=== PATIENT | female | born 1980 | race African-American/Black ===

== ENCOUNTER 2017-02-12 20:28 | Emergency (ER) | payer MEDICAID ==
[~2017-02-12] VITALS: Ht 167.6 cm; Wt 63.0 kg
[~2017-02-12 20:28] MED LIST: BACT800T5 PO; MOTR200T4 PO; TRAM50TA PO; VENTAER INH; ZOFR4TAB PO; ZOFR4TAB3 SL
[2017-02-12 20:31] VITALS: BP 133/89; PULSE 93; RESP 14; TEMP 98; O2SAT 98
--- NOTE | 2017-02-12 21:05 | PD ---
HPI Chief Complaint: [employer] Problem/Complaint Time Seen by Provider: 21:00 Travel History International Travel<30 days: No Contact w/Intl Traveler<30days: No Traveled to known affect area: No History of Present Illness HPI 37-year-old female came to the emergency room with history of lower abdominal/ suprapubic pain for past 2 days. Patient says that the pain is progressively worsening. She has had her hysterectomy due to severe endometriosis in the past. No history of vaginal bleeding or discharge. She had her left ovary taken out as well. She does have some chills she says but patient was afebrile in triage. Vital signs were otherwise stable. She does not describe any dysuria or hematuria. Patient says she has not had this kind of pain in the past. No aggravating or relieving factors. No history of nausea vomiting. She seems uncomfortable. PFSH Past Medical History Narrative Medical List of her past medical, surgical, social and family history was reviewed from the nursing note. Hx Anticoagulant Therapy: Yes (hx blood clot in leg does not currently take meds.. can't afford) Blood Disorders: Yes (LLE DVT DX 01/2010) Cardiovascular Problems: No Diminished Hearing: No Deep Vein Thrombosis: Yes Gastrointestinal Disorders: No Genitourinary: Yes (Endometriosis Mass found on bladder 03/17/16) Musculoskeletal: No Neurologic: No Reproductive: Yes (Mass found on left ovary 03/17/16) Respiratory: No Immunizations Current: Yes ?: Not Menopausal: Yes : 4 Para: 4 Tubal Ligation: Yes Past Surgical History Section: Yes (X 4) Gynecologic Surgery: Yes (left ovary removed) Hysterectomy: Yes (2012) Other Surgery: Yes (IVC filter placement and DVT removal-LEFT LEG) Family History Family Hypercholesterolemia: Yes Social History Alcohol Use: No Tobacco Use: Yes (1/2 PD) Substance Use: Yes (MARIJUANA) Allergies-Medications (Allergen,Severity, Reaction): Coded Allergies: Percocet (Verified Allergy, Severe, Rash, 02/12/17) *MDRO Multi-Drug Resistant Organism (Verified Allergy, Unknown, 02/12/17) MRSA Comments List of her allergies reviewed from the nursing note. Reported Meds & Prescriptions Reported Meds & Active Scripts Active Hydrocodone-Acetaminophen 5-325 mg Tab 1 Tab PO Q6H PRN Macrobid (Nitrofurantoin Monoh/Nitrofur Macro) 100 Mg Cap 100 Mg PO BID 7 Days Reported Motrin Ib (Ibuprofen) 200 Mg Tab 400 Mg PO Q4H PRN Narrative Medication List of her home medications reviewed from the nursing note. Review of Systems Except as stated in HPI: all other systems reviewed are Neg Physical Exam Narrative GENERAL: Awake, alert, moderate to significant distress SKIN: Warm and dry. HEAD: Atraumatic. Normocephalic. EYES: Pupils equal and round. No scleral icterus. No injection or drainage. ENT: No nasal bleeding or discharge. Mucous membranes pink and moist. NECK: Trachea midline. No JVD. CARDIOVASCULAR: Regular rate and rhythm. No murmur appreciated. RESPIRATORY: No accessory muscle use. Clear to auscultation. Breath sounds equal bilaterally. GASTROINTESTINAL: Suprapubic mass that is tender on palpation. Given the tenderness it was difficult to assess the mass boundaries with certainty. Hepatic and splenic margins not palpable. MUSCULOSKELETAL: No obvious deformities. No clubbing. No cyanosis. No edema. NEUROLOGICAL: Awake and alert. No obvious cranial nerve deficits. Motor grossly within normal limits. Normal speech. PSYCHIATRIC: Appropriate mood and affect; insight and judgment normal. Data Data Last Documented VS Orders Complete Blood Count With Diff (02/12/17 21:14) Comprehensive Metabolic Panel (02/12/17 21:14) Lipase (02/12/17 21:14) Urinalysis - C+S If Indicated (02/12/17 21:14) Iv Access Insert/Monitor (02/12/17 21:14) Ecg Monitoring (02/12/17 21:14) Oximetry (02/12/17 21:14) Sodium Chlor 0.9% 1000 Ml Inj (Ns 1000 M (02/12/17 21:14) Sodium Chloride 0.9% Flush (Ns Flush) (02/12/17 21:15) Ketorolac Inj (Toradol Inj) (02/12/17 21:15) C-Reactive Protein (Crp) (02/12/17 21:14) Ct Abd/Pel W Iv Contrast(Rout) (02/12/17 ) Oral Contrast - Adult (02/12/17 21:22) Diatrizoate Liq ( [place] Liq) (02/12/17 21:38) Urine Culture (02/12/17 21:30) Morphine Inj (Morphine Inj) (02/12/17 22:30) Ondansetron Inj (Zofran Inj) (02/12/17 22:30) Sodium Chlor 0.9% 1000 Ml Inj (Ns 1000 M (02/12/17 22:30) Ceftriaxone Inj (Rocephin Inj) (02/12/17 22:30) Iohexol 350 Inj (Omnipaque 350 Inj) (02/12/17 23:04) Labs MDM Medical Decision Making Medical Screen Exam Complete: Yes Emergency Medical Condition: Yes Medical Record Reviewed: Yes Differential Diagnosis Cystitis, acute appendicitis, pelvic tumor Narrative Course 9:19 PM patient is medicated with Toradol for pain and IV fluid given. Ordered blood test and CT scan. Awaiting for the test results to be done and reported. I will reassess her in a bit. 11:40 PM patient earlier was vomiting and continued to have pain in spite of the Toradol. She was given morphine. Currently she seems to be pain free. CT scan report was back. It shows a pelvic mass that apparently was present in the earlier CT as well. The radiologist has mentioned this mass to be possibly infiltrative from endometriosis. Slightly bigger in size and engulfing the intestine but no obvious obstruction. I put a call out for the [employer] on-call and I will discuss the case with him. 11:45 PM I spoke with Dr. Rogers who was the OB change control specialist. After reading to him the report of the CAT scan he thought patient was a good candidate to be followed up as an outpatient with her [employer] or [employer] who is change control specialist. I will discharge her home with a prescription for antibiotic and few pills of hydrocodone. Procedures EKG Prior to Arrival: No Physician Communication Physician Communication Dr. Rogers Diagnosis Primary Impression: Pelvic pain Additional Impressions: Pelvic mass UTI (urinary tract infection) Qualified Code: N39.0 - Urinary tract infection without hematuria, site unspecified Vomiting Qualified Code: R11.2 - Non-intractable vomiting with nausea, unspecified vomiting type Endometriosis Referrals: Cheryl Irvin MD 3 days Departure Forms: Tests/Procedures, Work Release Enter return to work date: Feb 14, 2017 Additional Instructions: Please follow-up with your [employer] on Wednesday regarding the endometriosis mass. Take the pain medication only if the pain gets out of control. Take ibuprofen or Motrin for control the pain. Do not drive or operate heavy machinery while on the pain medication since it will make you groggy. Take the antibiotic as per the prescription direction. Return to the ER if the condition worsens or any other new concerns. Med/Other Pt SpecificInfo: Prescription(s) given Scripts Hydrocodone-Acetaminophen 5-325 mg Tab1 Tab PO Q6H PRN (PAIN) #15 TAB Ref 0 Prov:Walter Chang MD 02/12/17 Nitrofurantoin Monohydrate Macrocrystals (Macrobid)100 Mg [id number] Mg PO BID 7 Days Ref 0 Prov:Walter Chang MD 02/12/17 Disposition: 01 DISCHARGE HOME Condition: Stable Walter Chang MD Feb 12, 2017 21:05 Creatinine 0.59 MG/DL Estimat Glomerular Filtration 139 ML/MIN Rate Random Glucose 84 MG/DL Calcium Level 8.4 MG/DL Total Bilirubin 1.0 MG/DL Aspartate Amino Transf 12 U/L (AST/SGOT) Alanine Aminotransferase 16 U/L (ALT/SGPT) Alkaline Phosphatase 62 U/L C-Reactive Protein LESS THAN 0.29 MG/DL Total Protein 7.0 GM/DL Albumin 3.8 GM/DL Lipase 130 U/L Urine Color YELLOW Urine Turbidity HAZY Urine pH 6.0 Urine Specific [place] 1.020 Urine Protein TRACE mg/dL Urine Glucose (UA) NEG mg/dL Urine Ketones NEG mg/dL Urine Occult Blood LARGE Urine Nitrite NEG Urine Bilirubin NEG Urine Urobilinogen 2.0 MG/DL Urine Leukocyte Esterase SMALL Urine RBC /hpf Urine WBC 8 /hpf Urine Squamous Epithelial 3 /hpf Cells Urine Mucus FEW /lpf Microscopic Urinalysis Comment CULTURE INDICATED MDM Medical Decision Making Medical Screen Exam Complete: Yes Emergency Medical Condition: Yes Medical Record Reviewed: Yes Differential Diagnosis Cystitis, acute appendicitis, pelvic tumor Narrative Course 9:19 PM patient is medicated with Toradol for pain and IV fluid given. Ordered blood test and CT scan. Awaiting for the test results to be done and reported. I will reassess her in a bit. 11:40 PM patient earlier was vomiting and continued to have pain in spite of the Toradol. She was given morphine. Currently she seems to be pain free. CT scan report was back. It shows a pelvic mass that apparently was present in the earlier CT as well. The radiologist has mentioned this mass to be possibly infiltrative from endometriosis. Slightly bigger in size and engulfing the intestine but no obvious obstruction. I put a call out for the [employer] on-call and I will discuss the case with him. 11:45 PM I spoke with Dr. Rogers who was the OB change control specialist. After reading to him the report of the CAT scan he thought patient was a good candidate to be followed up as an outpatient with her [employer] or [employer] who is change control specialist. I will discharge her home with a prescription for antibiotic and few pills of hydrocodone. Procedures EKG Prior to Arrival: No Physician Communication Physician Communication Dr. Rogers Diagnosis Primary Impression: Pelvic pain Additional Impressions: Pelvic mass UTI (urinary tract infection) Qualified Code: N39.0 - Urinary tract infection without hematuria, site unspecified Vomiting Qualified Code: R11.2 - Non-intractable vomiting with nausea, unspecified vomiting type Endometriosis Referrals: Cheryl Irvin MD 3 days Departure Forms: Tests/Procedures, Work Release Enter return to work date: Feb 14, 2017 Additional Instructions: Please follow-up with your [employer] on Wednesday regarding the endometriosis mass. Take the pain medication only if the pain gets out of control. Take ibuprofen or Motrin for control the pain. Do not drive or operate heavy machinery while on the pain medication since it will make you groggy. Take the antibiotic as per the prescription direction. Return to the ER if the condition worsens or any other new concerns. Med/Other Pt SpecificInfo: Prescription(s) given Scripts Hydrocodone-Acetaminophen 5-325 mg Tab1 Tab PO Q6H PRN (PAIN) #15 TAB Ref 0 Prov:Walter Chang MD 02/12/17 Nitrofurantoin Monohydrate Macrocrystals (Macrobid)100 Mg [id number] Mg PO BID 7 Days Ref 0 Prov:Walter Chang MD 02/12/17 Disposition: 01 DISCHARGE HOME Condition: Stable Walter Chang MD Feb 12, 2017 21:05
[2017-02-12] MEDS ORDERED: SODIUM CHLOR 0.9% 1000 ML INJ 1,000 ML IV SCH (21:14)
[2017-02-12] MEDS ORDERED: SODIUM CHLORIDE 0.9% FLUSH 5 ML FLUSH IVF PRN (21:15)
[2017-02-12] MEDS ORDERED: KETOROLAC TROMETHAMINE 30 MG/ML (IVP) VIAL IVP ONE (21:15)
[2017-02-12] MEDS ORDERED: MOTR200T4 PO (21:17)
[2017-02-12] MEDS ORDERED: DIATRIZOATE MEGLUM/DIATRIZOATE SOD 9 ML CUP ONE (21:38)
[2017-02-12 21:55] LABS: AUTOMATED NEUTROPHIL # 6.1 TH/MM3 (1.8-7.7); BASOPHIL # 0.1 TH/MM3 (0-0.2); BASOPHIL % 1.3 % (0.0-2.0); EOSINOPHIL # 0.3 TH/MM3 (0-0.4); EOSINOPHIL % 2.4 % (0.0-4.0); HEMATOCRIT 37.5 % (35.0-46.0); HEMO FLAGS DIFF FINAL; LYMPHOCYTE # 3.5 TH/MM3 (1.0-4.8); MEAN CELL VOLUME 89.4 FL (80.0-100.0); MEAN CORPUSCULAR HEMOGLOBIN 31.9 PG (27.0-34.0); MEAN CORPUSCULAR HGB CONC 35.7 % (32.0-36.0); MONO % 6.3 % (0.0-8.0); PLATELET COUNT 227 TH/MM3 (150-450); RED BLOOD COUNT 4.19 MIL/MM3 (4.00-5.30); RED CELL DISTRIBUTION WIDTH 14.1 % (11.6-17.2); WHITE BLOOD COUNT 10.7 TH/MM3 (4.0-11.0)
[2017-02-12 21:58] LABS: BLOOD, URINE LARGE (NEG); COMMENT (UR) CULTURE INDICATED; CULTURE IF INDICATED CULTURE INDICATED; GLUCOSE,URINE NEG (NEG); KETONE, URINE NEG (NEG); MUCUS URINE FEW /lpf (OCC); NITRITE,URINE NEG (NEG); SQUAMOUS EPITHELIAL CELL URINE 3 /hpf (0-5); URINE COLOR YELLOW (YELLW/STRAW)
[2017-02-12 22:22] LABS: ALT (GPT) 16 U/L (10-53); ANION GAP 7 MEQ/L (5-15); AST (GOT) 12 U/L (15-37); BICARBONATE 23.2 MEQ/L (21.0-32.0); BLOOD UREA NITROGEN 15 MG/DL (7-18); CHLORIDE 110 MEQ/L (98-107); GLOMERULAR FILTRATION RATE 139 ML/MIN (>89); POTASSIUM 3.4 MEQ/L (3.5-5.1); SODIUM (NA) 140 MEQ/L (136-145)
[2017-02-12 22:24] LABS: ALKALINE PHOSPHATASE 62 U/L (45-117)
[2017-02-12] MEDS ORDERED: SODIUM CHLOR 0.9% 1000 ML INJ 1,000 ML IV ONE (22:30)
[2017-02-12] MEDS ORDERED: MORPHINE SULFATE 4 MG/ML INJ IV PUSH ONE (22:30)
[2017-02-12] MEDS ORDERED: ONDANSETRON HCL 4 MG/2 ML VIAL IV PUSH ONE (22:30)
[2017-02-12] MEDS ORDERED: cefTRIAXone INJ 1,000 MG in SODIUM CHLORIDE 0.9% INJ 100 ML IV ONE (22:30)
[2017-02-12] MEDS ORDERED: IOHEXOL 350 MG/ML 10 ML VIAL (for RAD DIAG) IV ONE (23:04)
--- NOTE | 2017-02-12 23:25 | RADRPT ---
EXAM DATE/TIME: 02/12/2017 22:51 [facility] COMPARISON: CT ABDOMEN & PELVIS W CONTRAST, November 03, 2016, 20:30. INDICATIONS : Abdominal pain. IV CONTRAST: 97 cc Omnipaque 350 (iohexol) IV ORAL CONTRAST: Partial prescribed oral contrast ingested. RADIATION DOSE: 9.96 CTDIvol (mGy) MEDICAL HISTORY : Cardiovascular disease. SURGICAL HISTORY : section. Tubal ligation.Left oopherectomy, IVC filter ENCOUNTER: Initial ACUITY: 1 day PAIN SCALE: 7/10 LOCATION: abdomen TECHNIQUE: Volumetric scanning of the abdomen and pelvis was performed. Using automated exposure control and ad justment of the mA and/or kV according to patient size, radiation dose was kept as low as reasonably achievable to obtain optimal diagnostic quality images. FINDINGS: Comparison is October 2016. Lung bases are clear. No acute findings in the liver, spleen, adrenals, kidneys or pancreas. Tiny nonobstructing calculus m id pole left kidney is stable. Again seen are postop changes of prior distal small bowel surgery with staple line visualized. Inferi or vena cava filter is present. Again seen is abnormal soft tissue thickening of the inferior anterior abdominal wall involving rectu s abdominus. There is an abnormal enhancing infiltrating mass in the anterior and superior wall of th e bladder. This measures approximately 4.5 x 2.6 x 3.4 cm. Mass is stable to slightly enlarged compar ed with October 2016. Reportedly there is a previous diagnosis of endometriosis. CONCLUSION: 1. Persistent abnormal masslike thickening of the rectus abdominus muscle inferiorly adjacent to the biopsy-proven site of endometriosis. Abnormal soft tissue extends into the pelvis where there is an e nhancing infiltrative mass along the anterosuperior wall of the bladder. Mass is stable to slightly i ncreased in size since October 2016 with measurements given above. Mass likely represents deep infil trative endometriosis given the clinical history. 2. There is some angulation and tethering of small bowel loops in the pelvis without obstruction. Valente Martinez MD on February 12, 2017 at 23:14 Board Certified Radiologist. This report was verified electronically.
[2017-02-12] MEDS ORDERED: MACR100C2 PO (23:53)
[2017-02-12] MEDS ORDERED: HYDR-3516 PO (23:53)
== END 2017-02-13 00:26 | disposition home or self-care (01) ==
LOC: NEPE 20:28
DX: N39.0 Urinary tract infection, site not specified (principal); N80.9 Endometriosis, unspecified; B96.29 Other Escherichia coli [E. coli] as the cause of diseases classified elsewhere; F17.210 Nicotine dependence, cigarettes, uncomplicated; F12.10 Cannabis abuse, uncomplicated; Z79.01 Long term (current) use of anticoagulants; Z86.718 Personal history of other venous thrombosis and embolism; Z90.710 Acquired absence of both cervix and uterus
CPT/HCPCS: 74177; 80053; 81001; 83690; 85025; 86140; 87086; 96374; 96375; 99284; J0696; J1885; J2270; J2405; J7030; Q9963; Q9967

== ENCOUNTER 2017-04-05 18:49 | Emergency (ER) | payer MEDICAID ==
[~2017-04-05] VITALS: Ht 170.2 cm; Wt 65.0 kg
[~2017-04-05 18:49] MED LIST changes: -BACT800T5 PO; +HYDR-3516 PO; +MACR100C2 PO; -TRAM50TA PO; -VENTAER INH; -ZOFR4TAB PO; -ZOFR4TAB3 SL
[2017-04-05 18:50] VITALS: BP 142/86; PULSE 87; RESP 16; TEMP 98.7; O2SAT 99
--- NOTE | 2017-04-05 19:07 | PD ---
Physical Exam Time Seen by Provider: 19:03 Narrative 37yo F w/ c/o LLQ abd pain since yesterday and hematuria today. Denies change in stool or blood in stool. Reports nausea w/o vomiting. Denies fever. Says she also feels a flutter in heart occasionally and it hurts to breath. Hx of hysterectomy. Hx of DVT and has filter in heart and lungs. Yossi hx PE. Denies anticoagulants. VS reviewed. Patient seen in triage. Awaiting bed placement. Data Data Last Documented VS Vital Signs Date Time Temp Pulse Resp B/P Pulse Ox O2 Delivery O2 Flow Rate FiO2 04/05/17 18:50 98.7 87 16 142/86 99 MDM Supervised Visit with DANY: Vianey Bashir April 05, 2017 19:07
--- NOTE | 2017-04-05 19:31 | PD ---
HPI Chief Complaint: Abdominal Pain Time Seen by Provider: 19:14 Travel History International Travel<30 days: No Contact w/Intl Traveler<30days: No Traveled to known affect area: No History of Present Illness HPI The patient is a 37 year old female who presents to the [facility] emergency department with a history of worsening abdominal pain in the suprapubic area and left lower quadrant of the abdomen began over the last 2 days. This morning she reports that she also began to have hematuria once in the morning and once this evening. She reports that she has chronic urinary frequency and urgency over the last 2 years. She reports that she also has been diagnosed with severe endometriosis and was referred by her primary care doctor, Dr. Rodríguez braid pattern setter in [place], however her endometriosis was so extensive that the CONTENT DESIGNER recommended as his surgeon for treatment. The patient reports that she has undergone a hysterectomy and a left oophorectomy related to the endometriosis previously. The patient's other symptoms include for the last 2 weeks left leg swelling and intermittent cramping of the calf. The patient reports that she has a history of left lower extremity DVT in 2009. She reports that it was extensive and was resistant to thrombolysis/ thrombectomy. The patient reports that she was on blood thinners for 3 years, however she also had an inferior vena cava filter placement. The patient confirms over the last 2 days that she's had pain that feels like a spasm/ cramping sensation in her lower abdomen after she urinates. The patient denies any recent fevers, cough, congestion, neck pain, chest pain, shortness of breath , vomiting, diarrhea, or neurologic symptoms. [facility] Past Medical History Narrative Medical The patient's past medical history is significant for left lower farias a DVT, history of inferior vena caval filter placement, history of endometriosis, with last evaluation by CT on February 12, 2017 revealed a masslike thickening of the rectus abdominis muscle inferiorly adjacent to biopsy proven site of endometriosis, infiltrative mass along the anterior superior wall of the bladder that it increased in size since October 2016 thought to be an infiltrative endometriosis. The patient has a history of tobacco use. Hx Anticoagulant Therapy: Yes (hx blood clot in leg does not currently take meds.. can't afford) Blood Disorders: Yes (LLE DVT DX 01/2010) Cardiovascular Problems: No Diminished Hearing: No Deep Vein Thrombosis: Yes Gastrointestinal Disorders: No Genitourinary: Yes (Endometriosis Mass found on bladder 03/17/16) Musculoskeletal: No Neurologic: No Reproductive: Yes (Mass found on left ovary 03/17/16) Respiratory: No Immunizations Current: Yes Tetanus Vaccination: Unknown Influenza Vaccination: Yes ?: Not Menopausal: Yes : 4 Para: 4 Tubal Ligation: Yes Past Surgical History Narrative Surgical The patient's past surgical history is significant for an inferior vena cava filter placement, 4 prior C-sections, attempted thrombectomy of the left lower extremity DVT, left oophorectomy. Section: Yes (X 4) Gynecologic Surgery: Yes (left ovary removed) Hysterectomy: Yes Other Surgery: Yes (IVC filter placement and DVT removal-LEFT LEG) Family History Family Hypercholesterolemia: Yes Social History Alcohol Use: No Tobacco Use: Yes (1/2 PD) Substance Use: Yes (MARIJUANA) Allergies-Medications (Allergen,Severity, Reaction): Coded Allergies: Percocet (Verified Allergy, Severe, Rash, 04/05/17) *MDRO Multi-Drug Resistant Organism (Verified Allergy, Unknown, 04/05/17) MRSA Reported Meds & Prescriptions Reported Meds & Active Scripts Active No Active Prescriptions or Reported Medications Review of Systems Except as stated in HPI: all other systems reviewed are Neg General / Constitutional: No: Fever Eyes: No: Visual changes HENT: No: Headaches Cardiovascular: No: Chest Pain or Discomfort Respiratory: No: Shortness of Breath Gastrointestinal: Positive: Abdominal Pain, No: Nausea, Vomiting, Diarrhea, Hematemesis, Hematochezia, Changes in Bowel Habits, Indigestion, Loss of Appetite Genitourinary: Positive: Urgency, Frequency, Dysuria, Hematuria Musculoskeletal: No: Pain Skin: No Rash Neurologic: No: Weakness, Focal Abnormalities, Slurred Speech, Sensory Disturbance Psychiatric: No: Depression Endocrine: No: Polydipsia Hematologic/Lymphatic: No: Easy Bruising Physical Exam Narrative General: The patient is a well-developed well-nourished female in no acute distress. Head and Neck exam: Head is normocephalic atraumatic. Eyes: EOMI, pupils are equal round and reactive to light. Nose: Midline septum with pink mucous membranes Mouth: Dentition unremarkable. Moist mucus membranes. Posterior oropharynx is not erythematous. No tonsillar hypertrophy. Uvula midline. Airway patent. Neck: No palpable lymphadenopathy. No nuchal rigidity. No thyromegaly. Cardiovascular: Regular rate and rhythm without murmurs, gallops, or rubs. Lungs: Clear to auscultation bilaterally. No wheezes, rhonchi, or rales. Abdomen: Soft, with tenderness on palpation over the suprapubic and left lower quadrant of abdomen. No guarding, rebound, or rigidity. No tenderness on palpation of McBurney's point. Negative Whalen sign. Normal bowel sounds are audible. Extremities: No clubbing or cyanosis. The patient has left lower extremity trace pedal edema. 2+ pulses in all 4 extremities. The patient has left-sided calf tenderness on palpation with a positive Homans sign. No palpable cords. Back: No spinous process tenderness to palpation. No costovertebral angle tenderness to palpation. Neurologic Exam: Grossly nonfocal. Skin Exam: No rash noted. Intact skin that is warm and dry. Data Data Last Documented VS Vital Signs Date Time Temp Pulse Resp B/P Pulse Ox O2 Delivery O2 Flow Rate FiO2 04/05/17 20:01 99 Room Air 04/05/17 18:50 98.7 87 16 142/86 Orders Electrocardiogram (04/05/17 19:33) Complete Blood Count With Diff (04/05/17 19:33) Comprehensive Metabolic Panel (04/05/17 19:33) Prothrombin Time / Inr (Pt) (04/05/17 19:33) Act Partial Throm Time (Ptt) (04/05/17 19:33) Lipase (04/05/17 19:33) Urinalysis - C+S If Indicated (04/05/17 19:33) Magnesium (Mg) (04/05/17 19:33) Thyroid Stimulating Hormone (04/05/17 19:33) Chest, Single Ap (04/05/17 19:33) Iv Access Insert/Monitor (04/05/17 19:33) Ecg Monitoring (04/05/17 19:33) Oximetry (04/05/17 19:33) Ed Urine Pregnancytest Poc (04/05/17 19:33) Us Leg Venous Doppler (04/05/17 19:33) Ct Abd/Pel W Iv Contrast(Rout) (04/05/17 19:36) Sodium Chlor 0.9% 1000 Ml Inj (Ns 1000 M (04/05/17 19:45) Urine Culture (04/05/17 19:53) Sodium Chlor 0.9% 1000 Ml Inj (Ns 1000 M (04/05/17 21:15) Ceftriaxone Inj (Rocephin Inj) (04/05/17 21:15) Iohexol 350 Inj (Omnipaque 350 Inj) (04/05/17 21:24) Labs Laboratory Tests Test 04/05/17 19:53 White Blood Count 10.4 TH/MM3 Red Blood Count 4.26 MIL/MM3 Hemoglobin 13.0 GM/DL Hematocrit 38.3 % Mean Corpuscular Volume 89.9 FL Mean Corpuscular Hemoglobin 30.5 PG Mean Corpuscular Hemoglobin 33.9 % Concent Red Cell Distribution Width 13.3 % Platelet Count 224 TH/MM3 Mean Platelet Volume 8.1 FL Neutrophils (%) (Auto) 59.6 % Lymphocytes (%) (Auto) 31.7 % Monocytes (%) (Auto) 6.5 % Eosinophils (%) (Auto) 1.8 % Basophils (%) (Auto) 0.4 % Neutrophils # (Auto) 6.2 TH/MM3 Lymphocytes # (Auto) 3.3 TH/MM3 Monocytes # (Auto) 0.7 TH/MM3 Eosinophils # (Auto) 0.2 TH/MM3 Basophils # (Auto) 0.0 TH/MM3 CBC Comment DIFF FINAL Differential Comment Prothrombin Time 11.7 SEC Prothromb Time International 1.1 RATIO Ratio Activated Partial 27.3 SEC Thromboplast Time Urine Color YELLOW Urine Turbidity HAZY Urine pH 6.5 Urine Specific [place] 1.040 Urine Protein 30 mg/dL Urine Glucose (UA) NEG mg/dL Urine Ketones TRACE mg/dL Urine Occult Blood LARGE Urine Nitrite NEG Urine Bilirubin NEG Urine Urobilinogen 2.0 MG/DL Urine Leukocyte Esterase MOD Urine RBC /hpf Urine WBC 11 /hpf Urine Squamous Epithelial 1 /hpf Cells Urine Bacteria RARE /hpf Urine Mucus FEW /lpf Microscopic Urinalysis Comment CULTURE INDICATED Sodium Level 140 MEQ/L Potassium Level 3.6 MEQ/L Chloride Level 109 MEQ/L Carbon Dioxide Level 23.3 MEQ/L Anion Gap 8 MEQ/L Blood Urea Nitrogen 18 MG/DL Creatinine 0.62 MG/DL Estimat Glomerular Filtration 131 ML/MIN Rate Random Glucose 91 MG/DL Calcium Level 8.7 MG/DL Magnesium Level 1.7 MG/DL Total Bilirubin 0.8 MG/DL Aspartate Amino Transf 12 U/L (AST/SGOT) Alanine Aminotransferase 15 U/L (ALT/SGPT) Alkaline Phosphatase 67 U/L Total Protein 6.8 GM/DL Albumin 3.6 GM/DL Lipase 128 U/L Thyroid Stimulating Hormone 2.350 uIU/ML 3rd Gen [facility] Medical Decision Making Medical Screen Exam Complete: Yes Emergency Medical Condition: Yes Medical Record Reviewed: Yes Interpretation(s) Last Impressions Abdomen/Pelvis CT 04/05/171935 Signed Impressions: Service Date/Time: Wednesday, April 05, 2017 21:15 - CONCLUSION: Stable CT appearance of the abdomen and pelvis Lamberto Byers MD Lower Extremity Ultrasound 04/05/171932 Signed Impressions: Service Date/Time: Wednesday, April 05, 2017 20:30 - CONCLUSION: Normal examination. Lamberto Byers MD Chest X-Ray 04/05/171932 Signed Impressions: Service Date/Time: Wednesday, April 05, 2017 19:47 - CONCLUSION: No acute disease. Lamberto Byers MD Differential Diagnosis Endometrial Mass infiltration through the bladder, versus urinary tract infection/hemorrhagic cystitis, versus kidney stone, versus pyelonephritis. Narrative Course During the course of the patients emergency department visit, the patients history, examination, and differential diagnosis were reviewed with the patient. The patient had IV access obtained and blood work sent for analysis. The patient will have a CT scan of the abdomen and pelvis, ultrasound of left lower extremity to evaluate for possible recurrent DVT. The patient was initially provided normal saline 1 L IV fluid bolus. The patients laboratory studies were reviewed and remarkable for a white count of 10.4, hemoglobin 13, platelets 224 with a normal differential, CMP is remarkable for chloride of 109, AST 12, TSH 2.35, lipase 128, PT 11.7, PTT 27.3 , urinalysis shows specific gravity 1.040, therefore a second liter of normal saline IV fluids was administered, 30 protein, trace ketones, large occult blood , moderate leukocyte esterase with innumerable rbc's, 11 the PVCs, rare bacteria , culture indicated. Radiology studies were reviewed and remarkable for a chest x-ray that shows no acute abnormality. An ultrasound of the left lower extremity that shows no evidence of DVT, normal exam. CT scan of the abdomen and pelvis is stable compared to previously according to the reading radiologist. The patient will be discharged home with a prescription for pain medication and antibiotic. The patient is instructed regarding the importance of following up with a general surgeon as previously recommended by the braid pattern setter she saw in consultation. The patient is resting comfortably and feels better, is alert and in no distress. The patients results and examination findings were discussed with the patient. The repeat examination is unremarkable and benign. The history, exam, diagnostic testing, and current condition do not suggest any significant pathology to warrant further testing, continued ED treatment, admission, or surgical evaluation at this point. The vital signs have been stable. The patient does not have uncontrollable pain, intractable vomiting, or other significant symptoms. The patient's condition is stable and appropriate for discharge. The patient will pursue further outpatient evaluation with a primary care physician or other designated or consulting physician as indicated in the discharge instructions. The patient expressed understanding and was agreeable with this plan. Diagnosis Primary Impression: Abdominal pain Qualified Code: R10.32 - Left lower quadrant pain Additional Impressions: Endometriosis Urinary tract infection Qualified Code: N30.01 - Acute cystitis with hematuria Referrals: General Surgeon 1 week Primary Care Physician 3 days Patient Instructions: Endometriosis (ED), General Instructions, Urinary Tract Infection in Women (ED) Med/Other Pt SpecificInfo: Prescription(s) given Scripts Sulfamethoxazole-Trimethoprim (Bactrim DS)800-160 Mg Tab1 Tab PO BID #14 TAB Ref 0 Prov:Emili Zuñiga MD 04/05/17 Hydrocodone-Acetaminophen 5-325 mg Tab1 Tab PO Q6H PRN (PAIN) #15 TAB Ref 0 Prov:Emili Zuñiga MD 04/05/17 Disposition: 01 DISCHARGE HOME Condition: Stable Emili Zuñiga MD April 05, 2017 19:31
[2017-04-05] MEDS ORDERED: SODIUM CHLOR 0.9% 1000 ML INJ 1,000 ML IV ONE ×2 (19:45→21:15)
--- NOTE | 2017-04-05 19:59 | RADRPT ---
EXAM DATE/TIME: 04/05/2017 19:47 [facility] COMPARISON: CHEST SINGLE AP, October 18, 2016, 18:47. INDICATIONS : Palpitations. Dyspnea. Chest and upper abdomen pain. MEDICAL HISTORY : Cardiovascular disease. Deep venous thrombosis. SURGICAL HISTORY : section. Tubal ligation. IVC filter. Oopherectomy, left. ENCOUNTER: Initial ACUITY: 2 days PAIN SCORE: 5/10 LOCATION: Bilateral upper quadrant abdomen and chest FINDINGS: A single view of the chest demonstrates the lungs to be symmetrically aerated without evidence of mas s, infiltrate or effusion. The cardiomediastinal contours are unremarkable. Osseous structures are intact. CONCLUSION: No acute disease. Lamberto Byers MD on April 05, 2017 at 19:57 Board Certified Radiologist. This report was verified electronically.
[2017-04-05 20:01] VITALS: O2SAT 99
[2017-04-05 20:26] LABS: AUTOMATED NEUTROPHIL # 6.2 TH/MM3 (1.8-7.7); BASOPHIL % 0.4 % (0.0-2.0); EOSINOPHIL # 0.2 TH/MM3 (0-0.4); EOSINOPHIL % 1.8 % (0.0-4.0); HEMATOCRIT 38.3 % (35.0-46.0); HEMO FLAGS DIFF FINAL; LYMPH % 31.7 % (9.0-44.0); LYMPHOCYTE # 3.3 TH/MM3 (1.0-4.8); MEAN CELL VOLUME 89.9 FL (80.0-100.0); MEAN CORPUSCULAR HEMOGLOBIN 30.5 PG (27.0-34.0); MEAN CORPUSCULAR HGB CONC 33.9 % (32.0-36.0); MONO % 6.5 % (0.0-8.0); NEUT % 59.6 % (16.0-70.0); PLATELET COUNT 224 TH/MM3 (150-450); RED BLOOD COUNT 4.26 MIL/MM3 (4.00-5.30); RED CELL DISTRIBUTION WIDTH 13.3 % (11.6-17.2); WHITE BLOOD COUNT 10.4 TH/MM3 (4.0-11.0)
[2017-04-05 20:29] LABS: BACTERIA, URINE RARE /hpf; BLOOD, URINE LARGE (NEG); GLUCOSE,URINE NEG (NEG); KETONE, URINE TRACE mg/dL (NEG); MUCUS URINE FEW /lpf (OCC); NITRITE,URINE NEG (NEG); PH, URINE 6.5 (5.0-8.5); SQUAMOUS EPITHELIAL CELL URINE 1 /hpf (0-5); URINE COLOR YELLOW (YELLW/STRAW)
[2017-04-05 20:30] LABS: COMMENT (UR) CULTURE INDICATED; CULTURE IF INDICATED CULTURE INDICATED
[2017-04-05 20:36] LABS: APTT (PATIENT) 27.3 SEC (24.3-30.1); INTERNATIONAL NORMALIZED RATIO 1.1 RATIO; PROTHROMBIN TIME - PATIENT 11.7 SEC (9.8-11.6)
[2017-04-05 20:43] LABS: ANION GAP 8 MEQ/L (5-15); AST (GOT) 12 U/L (15-37); BICARBONATE 23.3 MEQ/L (21.0-32.0); BLOOD UREA NITROGEN 18 MG/DL (7-18); CHLORIDE 109 MEQ/L (98-107); GLOMERULAR FILTRATION RATE 131 ML/MIN (>89); MAGNESIUM 1.7 MG/DL (1.5-2.5); POTASSIUM 3.6 MEQ/L (3.5-5.1); SODIUM (NA) 140 MEQ/L (136-145)
[2017-04-05 20:54] LABS: ALKALINE PHOSPHATASE 67 U/L (45-117); ALT (GPT) 15 U/L (10-53); TOTAL BILIRUBIN ADULT 0.8 MG/DL (0.2-1.0)
[2017-04-05] MEDS ORDERED: cefTRIAXone INJ 1,000 MG in SODIUM CHLORIDE 0.9% INJ 100 ML IV ONE (21:15)
[2017-04-05] MEDS ORDERED: IOHEXOL 350 MG/ML 10 ML VIAL (for RAD DIAG) IV ONE (21:24)
--- NOTE | 2017-04-05 21:24 | RADRPT ---
EXAM DATE/TIME: 04/05/2017 20:30 [facility] COMPARISON: No previous studies available for comparison. INDICATIONS : Left leg swelling. MEDICAL HISTORY : Deep venous thrombosis. Anticoagulant therapy. . Endometriosis. SURGICAL HISTORY : Tubal ligation. Hysterectomy. section. IVC filter. Thrombolysis/thrombectomy. ENCOUNTER: Subsequent ACUITY: 2 weeks PAIN SCORE: 1/10 LOCATION: Left leg. TECHNIQUE: Venous ultrasound of the leg was performed from the inguinal ligament to the proximal calf. Real-kervin e, color Doppler and spectral tracing, compression and augmentation techniques were used. FINDINGS: There is normal compressibility of the deep venous system from the inguinal region to the proximal ca lf. No echogenic clot is seen in the lumen of the common femoral, femoral, popliteal, and posterior tibial veins. There is a normal response of the venous system to proximal and distal augmentation an d respiration. CONCLUSION: Normal examination. Lamberto Byers MD on April 05, 2017 at 21:22 Board Certified Radiologist. This report was verified electronically.
--- NOTE | 2017-04-05 21:38 | RADRPT ---
EXAM DATE/TIME: 04/05/2017 21:15 [facility] COMPARISON: CT ABDOMEN & PELVIS W CONTRAST, February 12, 2017, 22:51. INDICATIONS : Left lower abdomen pain and hematuria today. IV CONTRAST: 96 cc Omnipaque 350 (iohexol) IV ORAL CONTRAST: No oral contrast ingested. RADIATION DOSE: 9.96 CTDIvol (mGy) MEDICAL HISTORY : deep vein thrombosis SURGICAL HISTORY : Hysterectomy. ENCOUNTER: Initial ACUITY: 1 day PAIN SCALE: 7/10 LOCATION: Left lower quadrant TECHNIQUE: Volumetric scanning of the abdomen and pelvis was performed. Using automated exposure control and ad justment of the mA and/or kV according to patient size, radiation dose was kept as low as reasonably achievable to obtain optimal diagnostic quality images. FINDINGS: LOWER LUNGS: The visualized lower lungs are clear. LIVER: Homogeneous density without lesion. There is no dilation of the biliary tree. No calcified gallston es. SPLEEN: Normal size without lesion. PANCREAS: Within normal limits. KIDNEYS: Normal in size and shape. There is no mass, stone or hydronephrosis. ADRENAL GLANDS: Within normal limits. VASCULAR: Aorta and branch vessels are intact and unremarkable. Inferior vena caval filter is again noted. BOWEL/MESENTERY: Anastomosis in the left lower quadrant. No evidence of bowel obstruction. No focal inflammatory vazquez es. ABDOMINAL WALL: Stable heterogeneous density in the low anterior pelvic wall, reportedly reflecting endometriosis pos t previous hysterectomy. Mass along the anterior left lateral dome of the bladder is also unchanged a nd presumably the same histology. RETROPERITONEUM: There is no lymphadenopathy. BLADDER: Mass as previously described, unchanged. REPRODUCTIVE: Mass as previously described, unchanged. INGUINAL: There is no lymphadenopathy or hernia. MUSCULOSKELETAL: Within normal limits for patient age. CONCLUSION: Stable CT appearance of the abdomen and pelvis Lamberto Byers MD on April 05, 2017 at 21:30 Board Certified Radiologist. This report was verified electronically.
[2017-04-05] MEDS ORDERED: HYDR-3516 PO (22:02)
[2017-04-05] MEDS ORDERED: BACT800T5 PO (22:02)
[2017-04-05] MEDS ORDERED: ACETAMINOPHEN/HYDROcodone 325 MG/5 MG TAB PO ONE (22:15)
--- NOTE | 2017-04-06 15:41 | EKG ---
Date Performed: 04/05/2017 Time Performed: 19:52:32 PTAGE: 37 years EKG: Sinus rhythm Compared to prior tracing no significant change NORMAL ECG PREVIOUS TRACING : 03/10/2010 17.47 DOCTOR: Hudson Ghosh Interpretating Date/Time 04/06/2017 15:37:26
== END 2017-04-05 23:35 | disposition home or self-care (01) ==
LOC: NEPC 18:49
DX: R10.32 Left lower quadrant pain (principal); N39.0 Urinary tract infection, site not specified; N80.9 Endometriosis, unspecified; R11.0 Nausea; R60.0 Localized edema; I49.8 Other specified cardiac arrhythmias; F17.210 Nicotine dependence, cigarettes, uncomplicated; Z86.718 Personal history of other venous thrombosis and embolism
CPT/HCPCS: 71010; 74177; 80053; 81001; 83690; 83735; 84443; 84703; 85025; 85610; 85730; 87086; 93005; 93971; J0696; J7030; Q9967; 96361; 96365

== ENCOUNTER 2017-05-17 05:05 | Emergency (ER) | payer MEDICAID ==
[~2017-05-17 05:05] MED LIST changes: +BACT800T5 PO; -MACR100C2 PO; -MOTR200T4 PO
[2017-05-17 05:09] VITALS: BP 112/77; PULSE 103; RESP 16; TEMP 98.3; O2SAT 98
[2017-05-17 06:10] VITALS: BP 118/80; PULSE 83; RESP 18; O2SAT 98
[2017-05-17] MEDS ORDERED: SODIUM CHLOR 0.9% 1000 ML INJ 1,000 ML IV SCH (06:49)
[2017-05-17 06:57] VITALS: RESP 18; O2SAT 99
[2017-05-17] MEDS ORDERED: ONDANSETRON HCL 4 MG/2 ML VIAL IVP ONE (07:00)
[2017-05-17] MEDS ORDERED: SODIUM CHLORIDE 0.9% FLUSH 10 ML FLUSH IV FLUSH PRN (07:00)
--- NOTE | 2017-05-17 07:03 | PD ---
HPI Chief Complaint: GI Complaint Time Seen by Provider: 06:41 Travel History International Travel<30 days: No Contact w/Intl Traveler<30days: No Traveled to known affect area: No History of Present Illness HPI The patient is a 37-year-old female that complains of bilateral lower quadrant pain, nausea and vomiting for 3 days. She denies any fever. She has a history of small bowel obstruction in 2009. She also has a history of DVT around the same time but is not on any anticoagulants. She has a hysterectomy. Her left ovary was removed. She states she still has her appendix and gallbladder. She denies any fever or diarrhea. PFSH Past Medical History Hx Anticoagulant Therapy: Yes (hx blood clot in leg does not currently take meds.. can't afford) Blood Disorders: Yes (LLE DVT DX 01/2010) Cardiovascular Problems: No Diminished Hearing: No Deep Vein Thrombosis: Yes Gastrointestinal Disorders: No Genitourinary: Yes (Endometriosis Mass found on bladder 03/17/16) Musculoskeletal: No Neurologic: No Reproductive: Yes (Mass found on left ovary 03/17/16) Respiratory: No Immunizations Current: Yes ?: Not Menopausal: Yes : 4 Para: 4 Tubal Ligation: Yes Past Surgical History Section: Yes (X 4) Gynecologic Surgery: Yes (left ovary removed) Hysterectomy: Yes Other Surgery: Yes (IVC filter placement and DVT removal-LEFT LEG) Family History Family Hypercholesterolemia: Yes Social History Alcohol Use: No Tobacco Use: Yes (/2 PD) Substance Use: Yes (MARIJUANA) Allergies-Medications (Allergen,Severity, Reaction): Coded Allergies: Percocet (Verified Allergy, Severe, Rash, 05/17/17) *MDRO Multi-Drug Resistant Organism (Verified Allergy, Unknown, 05/17/17) MRSA Reported Meds & Prescriptions Reported Meds & Active Scripts Active Hydrocodone-Acetaminophen 5-325 mg Tab 1 Tab PO Q6H PRN Review of Systems Except as stated in HPI: all other systems reviewed are Neg Physical Exam Narrative GENERAL: The patient is moderately dehydrated appearing. Her vital signs show heart rate of 103 but otherwise normal. SKIN: Focused skin assessment warm/dry. HEAD: Atraumatic. Normocephalic. EYES: Pupils equal and round. No scleral icterus. No injection or drainage. ENT: No nasal bleeding or discharge. Mucous membranes pink and moist. NECK: Trachea midline. No JVD. CARDIOVASCULAR: Regular rate and rhythm. No murmur appreciated. RESPIRATORY: No accessory muscle use. Clear to auscultation. Breath sounds equal bilaterally. GASTROINTESTINAL: Abdomen soft, with tenderness to direct palpation in both lower quadrants, nondistended. Hepatic and splenic margins not palpable. No guarding or rebound is present. MUSCULOSKELETAL: No obvious deformities. No clubbing. No cyanosis. No edema. NEUROLOGICAL: Awake and alert. No obvious cranial nerve deficits. Motor grossly within normal limits. Normal speech. PSYCHIATRIC: Appropriate mood and affect; insight and judgment normal. Data Data Last Documented VS Vital Signs Date Time Temp Pulse Resp B/P Pulse Ox O2 Delivery O2 Flow Rate FiO2 05/17/17 06:57 18 99 Room Air 05/17/17 06:10 83 118/80 05/17/17 05:09 98.3 Orders Complete Blood Count With Diff (05/17/17 06:49) Comprehensive Metabolic Panel (05/17/17 06:49) Lipase (05/17/17 06:49) Urinalysis - C+S If Indicated (05/17/17 06:49) Ct Abd/Pel W Iv Contrast(Rout) (05/17/17 06:49) Iv Access Insert/Monitor (05/17/17 06:49) Ecg Monitoring (05/17/17 06:49) Oximetry (05/17/17 06:49) Ondansetron Inj (Zofran Inj) (05/17/17 07:00) Sodium Chlor 0.9% 1000 Ml Inj (Ns 1000 M (05/17/17 06:49) Sodium Chloride 0.9% Flush (Ns Flush) (05/17/17 07:00) MDM Medical Decision Making Medical Screen Exam Complete: Yes Emergency Medical Condition: Yes Medical Record Reviewed: Yes Differential Diagnosis Acute appendicitis, small bowel obstruction, gastritis, dehydration, electrolyte disorder, renal insufficiency, anemia Narrative Course It is now 0700 and the patient is transferred to Jonn Banerjee MD May 17, 2017 07:03
[2017-05-17 07:20] LABS: ALKALINE PHOSPHATASE 67 U/L (45-117); TOTAL BILIRUBIN ADULT 0.7 MG/DL (0.2-1.0)
[2017-05-17 07:30] LABS: ALT (GPT) 19 U/L (10-53); ANION GAP 6 MEQ/L (5-15); AST (GOT) 32 U/L (15-37); BICARBONATE 27.1 MEQ/L (21.0-32.0); BLOOD UREA NITROGEN 17 MG/DL (7-18); CHLORIDE 106 MEQ/L (98-107); GLOMERULAR FILTRATION RATE 164 ML/MIN (>89); SODIUM (NA) 139 MEQ/L (136-145)
[2017-05-17 07:32] LABS: POTASSIUM 4.3 MEQ/L (3.5-5.1)
[2017-05-17 07:57] LABS: AUTOMATED NEUTROPHIL # 6.5 TH/MM3 (1.8-7.7); BASOPHIL # 0.1 TH/MM3 (0-0.2); BASOPHIL % 0.6 % (0.0-2.0); EOSINOPHIL # 0.3 TH/MM3 (0-0.4); EOSINOPHIL % 2.4 % (0.0-4.0); HEMATOCRIT 35.8 % (35.0-46.0); HEMO FLAGS DIFF FINAL; LYMPH % 28.8 % (9.0-44.0); MEAN CELL VOLUME 89.6 FL (80.0-100.0); MEAN CORPUSCULAR HEMOGLOBIN 31.4 PG (27.0-34.0); MONO % 5.8 % (0.0-8.0); NEUT % 62.4 % (16.0-70.0); PLATELET COUNT 221 TH/MM3 (150-450); RED CELL DISTRIBUTION WIDTH 13.7 % (11.6-17.2); WHITE BLOOD COUNT 10.5 TH/MM3 (4.0-11.0)
--- NOTE | 2017-05-17 08:12 | PD ---
Physical Exam Narrative Received sign out from previous team to follow up with CTa/p and reevaluate. 37yo F presents to the ED with c/o lower abdominal pain, NBNB vomiting. Denies any fever. Labs reviewed, no leukocytosis. Lipase wnl. CMP unremarkable. CTa /p showed cystic mass in left adnexa. Right ovary is surgically absent. Pt given morphine and zofran for pain. Pt reevaluated at bedside and pain has resolved. Abdomen soft, NT/ND. No rebound tenderness or guarding. Pt is well appearing. Tolerating PO. Data Data Last Documented VS Vital Signs Date Time Temp Pulse Resp B/P Pulse Ox O2 Delivery O2 Flow Rate FiO2 05/17/17 06:57 18 99 Room Air 05/17/17 06:10 83 118/80 05/17/17 05:09 98.3 Orders Complete Blood Count With Diff (05/17/17 06:49) Comprehensive Metabolic Panel (05/17/17 06:49) Lipase (05/17/17 06:49) Urinalysis - C+S If Indicated (05/17/17 06:49) Ct Abd/Pel W Iv Contrast(Rout) (05/17/17 06:49) Iv Access Insert/Monitor (05/17/17 06:49) Ecg Monitoring (05/17/17 06:49) Oximetry (05/17/17 06:49) Ondansetron Inj (Zofran Inj) (05/17/17 07:00) Sodium Chlor 0.9% 1000 Ml Inj (Ns 1000 M (05/17/17 06:49) Sodium Chloride 0.9% Flush (Ns Flush) (05/17/17 07:00) Ed Urine Pregnancytest Poc (05/17/17 07:56) Iohexol 350 Inj (Omnipaque 350 Inj) (05/17/17 08:20) Morphine Inj (Morphine Inj) (05/17/17 10:15) Ondansetron Inj (Zofran Inj) (05/17/17 10:45) Labs Laboratory Tests Test 05/17/17 05/17/17 05/17/17 06:50 07:37 08:20 Sodium Level 139 MEQ/L Potassium Level 4.3 MEQ/L Chloride Level 106 MEQ/L Carbon Dioxide Level 27.1 MEQ/L Anion Gap 6 MEQ/L Blood Urea Nitrogen 17 MG/DL Creatinine 0.51 MG/DL Estimat Glomerular Filtration 164 ML/MIN Rate Random Glucose 96 MG/DL Calcium Level 8.7 MG/DL Total Bilirubin 0.7 MG/DL Aspartate Amino Transf 32 U/L (AST/SGOT) Alanine Aminotransferase 19 U/L (ALT/SGPT) Alkaline Phosphatase 67 U/L Total Protein 7.0 GM/DL Albumin 3.7 GM/DL Lipase 95 U/L White Blood Count 10.5 TH/MM3 Red Blood Count 4.00 MIL/MM3 Hemoglobin 12.5 GM/DL Hematocrit 35.8 % Mean Corpuscular Volume 89.6 FL Mean Corpuscular Hemoglobin 31.4 PG Mean Corpuscular Hemoglobin 35.0 % Concent Red Cell Distribution Width 13.7 % Platelet Count 221 TH/MM3 Mean Platelet Volume 7.9 FL Neutrophils (%) (Auto) 62.4 % Lymphocytes (%) (Auto) 28.8 % Monocytes (%) (Auto) 5.8 % Eosinophils (%) (Auto) 2.4 % Basophils (%) (Auto) 0.6 % Neutrophils # (Auto) 6.5 TH/MM3 Lymphocytes # (Auto) 3.0 TH/MM3 Monocytes # (Auto) 0.6 TH/MM3 Eosinophils # (Auto) 0.3 TH/MM3 Basophils # (Auto) 0.1 TH/MM3 CBC Comment DIFF FINAL Differential Comment Urine Color YELLOW Urine Turbidity CLEAR Urine pH 6.5 Urine Specific [place] 1.026 Urine Protein TRACE mg/dL Urine Glucose (UA) NEG mg/dL Urine Ketones NEG mg/dL Urine Occult Blood NEG Urine Nitrite NEG Urine Bilirubin NEG Urine Urobilinogen 4.0 MG/DL Urine Leukocyte Esterase TRACE Urine RBC 1 /hpf Urine WBC 3 /hpf Urine Squamous Epithelial 1 /hpf Cells Urine Mucus FEW /lpf Microscopic Urinalysis Comment CULT NOT INDICATED MDM Supervised Visit with DANY: No Diagnosis Primary Impression: Abdominal pain Qualified Code: R10.9 - Abdominal pain, unspecified location Patient Instructions: General Instructions Departure Forms: Tests/Procedures Additional Instruction: Please follow up with your PMD in 3-7 days. Return to the ED if symptoms worsen. Med/Other Pt SpecificInfo: Prescription(s) given Scripts Ondansetron Odt (Zofran Odt)4 Mg Tab4 Mg SL Q12HR PRN (Nausea/Vomiting) #6 TAB Ref 0 Prov:Juli Carrion DO 05/17/17 Acetaminophen (Tylenol)325 Mg [id number] Mg PO Q6H PRN (PAIN SCALE 1 TO 4) #20 TAB Ref 0 Prov:Juli Carrion DO 05/17/17 Disposition: 01 DISCHARGE HOME Condition: Stable Juli Carrion DO May 17, 2017 08:12
[2017-05-17] MEDS ORDERED: IOHEXOL 350 MG/ML 10 ML VIAL (for RAD DIAG) IV ONE (08:20)
[2017-05-17 08:46] LABS: BLOOD, URINE NEG (NEG); COMMENT (UR) CULT NOT INDICATED; CULTURE IF INDICATED CULT NOT INDICATED; GLUCOSE,URINE NEG (NEG); KETONE, URINE NEG (NEG); MUCUS URINE FEW /lpf (OCC); NITRITE,URINE NEG (NEG); PH, URINE 6.5 (5.0-8.5); SQUAMOUS EPITHELIAL CELL URINE 1 /hpf (0-5); URINE COLOR YELLOW (YELLW/STRAW)
--- NOTE | 2017-05-17 08:53 | RADRPT ---
EXAM DATE/TIME: 05/17/2017 08:06 [facility] COMPARISON: CT ABDOMEN & PELVIS W CONTRAST, April 05, 2017, 21:15. INDICATIONS : Diffuse abdominal pain with vomiting. IV CONTRAST: 86 cc Omnipaque 350 (iohexol) IV ORAL CONTRAST: No oral contrast ingested. RADIATION DOSE: 4.87 CTDIvol (mGy) MEDICAL HISTORY : None SURGICAL HISTORY : Hysterectomy. IVC Filter placement. section. Left ovary removed ENCOUNTER: Initial ACUITY: 3 days PAIN SCALE: 10/10 LOCATION: Bilateral abdomen TECHNIQUE: Volumetric scanning of the abdomen and pelvis was performed. Using automated exposure control and ad justment of the mA and/or kV according to patient size, radiation dose was kept as low as reasonably achievable to obtain optimal diagnostic quality images. FINDINGS: Lung bases are clear. Liver, spleen, pancreas unremarkable. Vena cava filter is noted. There is symmetrical renal function. In the pelvis is a cystic mass in the right adnexal region slightly larger in the interval. Trace fl uid is evident. Bladder is decompressed. Review of bone windows reveals only degenerative changes. CONCLUSION: Slightly increase in size in cystic mass in the left adnexa region. The right ovary is surgically ab sent. Tiny non-obstructing stone in the left kidney without obstruction. Vena cava filter in position. Manjinder Robertson MD FACR on May 17, 2017 at 8:27 Board Certified Radiologist. This report was verified electronically.
[2017-05-17] MEDS ORDERED: MORPHINE SULFATE 4 MG/ML INJ IV PUSH ONE (10:15)
[2017-05-17] MEDS ORDERED: TYLE325T PO (10:38)
[2017-05-17] MEDS ORDERED: ONDANSETRON HCL 4 MG/2 ML VIAL IV PUSH ONE (10:45)
[2017-05-17] MEDS ORDERED: ZOFR4TAB3 SL (12:22)
== END 2017-05-17 11:00 | disposition home or self-care (01) ==
LOC: NEPC 05:05
DX: R10.9 Unspecified abdominal pain (principal); R11.2 Nausea with vomiting, unspecified; Z86.718 Personal history of other venous thrombosis and embolism; F17.210 Nicotine dependence, cigarettes, uncomplicated
CPT/HCPCS: 74177; 80053; 81001; 83690; 84703; 85025; 96374; 96375; 99285; J2270; J2405; J7030; Q9967

== ENCOUNTER 2017-09-20 07:22 | Emergency (ER) | payer MEDICAID ==
[~2017-09-20] VITALS: Ht 167.6 cm; Wt 60.0 kg
[~2017-09-20 07:22] MED LIST changes: -BACT800T5 PO; +TYLE325T PO; +ZOFR4TAB3 SL
[2017-09-20 07:24] VITALS: BP 124/84; PULSE 110; RESP 18; TEMP 98.7; O2SAT 96
[2017-09-20] MEDS ORDERED: ALUMINUM/MAGNESIUM/SIMETH 30 ML CUP PO ONE (08:15)
[2017-09-20] MEDS ORDERED: KETOROLAC TROMETHAMINE 60 MG/2 ML (IM) VIAL IM ONE (08:15)
[2017-09-20] MEDS ORDERED: LIDOCAINE VISCOUS 2% SOLN 15 ML UDC PO ONE (08:15)
[2017-09-20 09:08] LABS: BILIRUBIN, URINE NEG (NEG); BLOOD, URINE LARGE (NEG); GLUCOSE,URINE NEG (NEG); KETONE, URINE NEG (NEG); MUCUS URINE FEW /lpf (OCC); NITRITE,URINE NEG (NEG); PH, URINE 6.5 (5.0-8.5); SQUAMOUS EPITHELIAL CELL URINE 4 /hpf (0-5); URINE COLOR YELLOW (YELLW/STRAW); URINE LEUKOCYTE ESTERASE MOD (NEG)
[2017-09-20] MEDS ORDERED: IBUP-232 PO (09:10)
--- NOTE | 2017-09-20 09:10 | PD ---
HPI Chief Complaint: Abdominal Pain Time Seen by Provider: 07:36 Travel History International Travel<30 days: No Contact w/Intl Traveler<30days: No Traveled to known affect area: No History of Present Illness HPI 37-year-old female arrives to the ER complaining of abdominal pain generalized for the past 4 days. She is noticed blood in the urine. She reports dysuria. She reports hysterectomy 2012. Positive nausea. No fever. Decreased appetite is reported. Normal bowel movements reported. Patient has history of endometriosis. She describes her abdominal pains as burning and pulling. She follows with general surgeon associated before the hospital and has been advised to undergo left hip surgery for treatment of endometriosis. No abnormal vaginal discharge or bleeding. PFSH Past Medical History Hx Anticoagulant Therapy: Yes (hx blood clot in leg does not currently take meds.. can't afford) Blood Disorders: Yes (LLE DVT DX 01/2010) Cardiovascular Problems: No Diminished Hearing: No Deep Vein Thrombosis: Yes Gastrointestinal Disorders: No Genitourinary: Yes (Endometriosis Mass found on bladder 03/17/16) Musculoskeletal: No Neurologic: No Reproductive: Yes (Mass found on left ovary 03/17/16) Respiratory: No Immunizations Current: Yes ?: Not Menopausal: Yes : 4 Para: 4 Tubal Ligation: Yes Past Surgical History Section: Yes (X 4) Gynecologic Surgery: Yes (left ovary removed) Hysterectomy: Yes Other Surgery: Yes (IVC filter placement and DVT removal-LEFT LEG) Family History Family Hypercholesterolemia: Yes Social History Alcohol Use: No Tobacco Use: Yes (1/2 PD) Substance Use: Yes (MARIJUANA) Allergies-Medications (Allergen,Severity, Reaction): Coded Allergies: oxycodone (Unverified Allergy, Severe, Rash, 09/20/17) *MDRO Multi-Drug Resistant Organism (Verified Allergy, Unknown, 09/20/17) MRSA Reported Meds & Prescriptions Reported Meds & Active Scripts Active Bactrim DS (Sulfamethoxazole-Trimethoprim) 800-160 Mg Tab 1 Tab PO BID Ibuprofen 600 Mg Tab 600 Mg PO Q8H PRN 7 Days Zofran Odt (Ondansetron Odt) 4 Mg Tab 4 Mg SL Q12HR PRN Tylenol (Acetaminophen) 325 Mg Tab 650 Mg PO Q6H PRN Hydrocodone-Acetaminophen 5-325 mg Tab 1 Tab PO Q6H PRN Review of Systems Except as stated in HPI: all other systems reviewed are Neg General / Constitutional: No: Fever Gastrointestinal: Positive: Nausea, Abdominal Pain, No: Vomiting, Diarrhea Physical Exam Narrative GENERAL: 37-year-old female pleasant well-nourished well-developed mild to moderate distress secondary to pain Skin: Intact. Dry. Warm. HEAD: Atraumatic. Normocephalic. EYES: Pupils equal and round. No scleral icterus. No injection or drainage. ENT: No nasal bleeding or discharge. Mucous membranes pink and moist. NECK: Trachea midline. No JVD. CARDIOVASCULAR: Regular rate and rhythm. RESPIRATORY: No accessory muscle use. Clear to auscultation. Breath sounds equal bilaterally. GASTROINTESTINAL: Soft. Minimal generalized nonspecific tenderness. MUSCULOSKELETAL: Extremities without clubbing, cyanosis, or edema. No obvious deformities. NEUROLOGICAL: Awake and alert. No obvious cranial nerve deficits. Motor grossly within normal limits. Five out of 5 muscle strength in the arms and legs. Normal speech. PSYCHIATRIC: Appropriate mood and affect; insight and judgment normal. Data Data Last Documented VS Vital Signs Date Time Temp Pulse Resp B/P (MAP) Pulse Ox O2 Delivery O2 Flow Rate FiO2 09/20/17 09:43 68 16 122/68 (86) 99 09/20/17 07:24 98.7 Vital signs reviewed Orders Orders Urinalysis - C+S If Indicated (09/20/17 07:36) Ed Urine Pregnancytest Poc (09/20/17 07:36) Ketorolac Inj (Toradol Inj) (09/20/17 08:15) Al-Mag Hy-Si 40-40-4 Mg/Ml Liq (Mag-Al P (09/20/17 08:15) Lidocaine 2% Viscous (Xylocaine 2% Visco (09/20/17 08:15) Urine Culture (09/20/17 07:54) Ed Discharge Order (09/20/17 09:21) Labs Laboratory Tests Test 09/20/17 07:54 Urine Color YELLOW Urine Turbidity HAZY Urine pH 6.5 Urine Specific [place] 1.031 Urine Protein 30 mg/dL Urine Glucose (UA) NEG mg/dL Urine Ketones NEG mg/dL Urine Occult Blood LARGE Urine Nitrite NEG Urine Bilirubin NEG Urine Urobilinogen 2.0 MG/DL Urine Leukocyte Esterase MOD Urine RBC /hpf Urine WBC 10 /hpf Urine Squamous Epithelial Cells 4 /hpf Urine Mucus FEW /lpf Microscopic Urinalysis Comment CULTURE INDICATED MDM Medical Decision Making Medical Screen Exam Complete: Yes Emergency Medical Condition: Yes Medical Record Reviewed: Yes Differential Diagnosis Constipation, Gastritis, Acute Cholecystitis, Biliary Colic, Pancreatitis, MADDOX , Hepatitis, Bowel Obstruction, Cystitis, Mesenteric Ischemia, AAA, Appendicitis , Renal Stone/Hydronephrosis, GERD, perforated viscous Narrative Course Urinalysis reveals no hematuria with moderate leukocyte esterase and 10 WBCs raising concern for possible cystitis. We will provide a course of antibiotics. Continued NSAIDs usage at home advised. Urine is negative, an expected outcome for a patient with hysterectomy. Diagnosis Primary Impression: Abdominal pain Qualified Codes: R10.9 - Unspecified abdominal pain Additional Impression: Urinary tract infection Qualified Codes: N30.01 - Acute cystitis with hematuria Referrals: Karen Ann MD 2 days [facility] 2 days Primary Care Physician 2 days Additional Instructions: You have a choice when it comes to health care, and we are glad that you chose [facility]. Hopefully, we have met your expectations on today's visit. You are welcome to return to [facility] at any time, as we are committed to meeting the health care needs of our community. Med/Other Pt SpecificInfo: Prescription(s) given Scripts Sulfamethoxazole-Trimethoprim (Bactrim DS) 800-160 Mg Tab 1 TAB PO BID for Infection, #6 TAB 0 Refills Prov: Allen Ramsey MD 09/20/17 Ibuprofen (Ibuprofen) 600 Mg Tab 600 MG PO Q8H Y for PAIN for 7 Days, #21 TAB 0 Refills Prov: Allen Ramsey MD 09/20/17 Disposition: 01 DISCHARGE HOME Condition: Stable Allen Ramsey MD Sep 20, 2017 09:10
[2017-09-20] MEDS ORDERED: BACT800T5 PO (09:20)
[2017-09-20 09:43] VITALS: BP 122/68
== END 2017-09-20 09:44 | disposition home or self-care (01) ==
LOC: NEPC 07:22
DX: N30.01 Acute cystitis with hematuria (principal); B96.89 Other specified bacterial agents as the cause of diseases classified elsewhere
CPT/HCPCS: 81001; 84703; 87086; 96372; 99284; J1885

== ENCOUNTER 2017-10-15 18:09 | Emergency (ER) | payer MEDICAID ==
[~2017-10-15] VITALS: Ht 167.6 cm; Wt 60.0 kg
[~2017-10-15 18:09] MED LIST changes: +BACT800T5 PO; +IBUP-232 PO
[2017-10-15 18:10] VITALS: BP 142/85; PULSE 84; RESP 14; TEMP 99.1; O2SAT 100
--- NOTE | 2017-10-15 20:21 | PD ---
HPI Chief Complaint: Abdominal Pain Time Seen by Provider: 20:18 Travel History International Travel<30 days: No Contact w/Intl Traveler<30days: No Traveled to known affect area: No History of Present Illness HPI 37-year-old female with PMH of endometriosis presents to the ED for evaluation of 3 day history of worsening 8/10 left lower quadrant abdominal pain, pink tinged urine, chills, nausea. Abdominal pain onset gradual, described as constant. No alleviating or exacerbating factors reported. She endorses chronic urinary urgency, no worse today. Last bowel movement this morning, well formed, nonbloody. Patient also complains of left-sided back pain. She denies recent history of fever, chills, cough. She treated at home with Aleve no improvement in symptoms. PFSH Past Medical History Hx Anticoagulant Therapy: Yes (hx blood clot in leg does not currently take meds.. can't afford) Blood Disorders: Yes (LLE DVT DX 01/2010) Cardiovascular Problems: No Diminished Hearing: No Deep Vein Thrombosis: Yes Gastrointestinal Disorders: No Genitourinary: Yes (Endometriosis Mass found on bladder 03/17/16) Musculoskeletal: No Neurologic: No Reproductive: Yes (Mass found on left ovary 03/17/16) Respiratory: No Immunizations Current: Yes ?: Not Menopausal: Yes : 4 Para: 4 Tubal Ligation: Yes Past Surgical History Section: Yes (X 4) Gynecologic Surgery: Yes (left ovary removed) Hysterectomy: Yes Other Surgery: Yes (IVC filter placement and DVT removal-LEFT LEG) Family History Family Hypercholesterolemia: Yes Social History Alcohol Use: No Tobacco Use: Yes (1/2 PD) Substance Use: Yes (MARIJUANA) Allergies-Medications (Allergen,Severity, Reaction): Coded Allergies: oxycodone (Unverified Allergy, Severe, Rash, 09/20/17) *MDRO Multi-Drug Resistant Organism (Verified Allergy, Unknown, 09/20/17) MRSA Reported Meds & Prescriptions Reported Meds & Active Scripts Active Bactrim DS (Sulfamethoxazole-Trimethoprim) 800-160 Mg Tab 1 Tab PO BID Ibuprofen 600 Mg Tab 600 Mg PO Q8H PRN 7 Days Zofran Odt (Ondansetron Odt) 4 Mg Tab 4 Mg SL Q12HR PRN Tylenol (Acetaminophen) 325 Mg Tab 650 Mg PO Q6H PRN Hydrocodone-Acetaminophen 5-325 mg Tab 1 Tab PO Q6H PRN Review of Systems Except as stated in HPI: all other systems reviewed are Neg Physical Exam Narrative GENERAL: Well-nourished, well-developed black female no acute distress. SKIN: Focused skin assessment warm/dry. HEAD: Normocephalic. EYES: No scleral icterus. No injection or drainage. NECK: Supple, trachea midline. No JVD or lymphadenopathy. CARDIOVASCULAR: Regular rate and rhythm without murmurs, gallops, or rubs. RESPIRATORY: Breath sounds clear and equal bilaterally. No accessory muscle use. GASTROINTESTINAL: Abdomen soft, nondistended. Tender to palpation in the suprapubic region, left lower quadrant. MUSCULOSKELETAL: No cyanosis, or edema. BACK: Nontender without obvious deformity. + Left-sided CVA tenderness. Data Data Last Documented VS Vital Signs Date Time Temp Pulse Resp B/P (MAP) Pulse Ox O2 Delivery O2 Flow Rate FiO2 10/15/17 20:36 98.5 87 16 138/90 (106) 99 Orders Orders Complete Blood Count With Diff (10/15/17 20:21) Comprehensive Metabolic Panel (10/15/17 20:21) Lipase (10/15/17 20:21) Lactic Acid (10/15/17 20:21) Urinalysis - C+S If Indicated (10/15/17 20:21) Iv Access Insert/Monitor (10/15/17 20:21) Ecg Monitoring (10/15/17 20:21) Oximetry (10/15/17 20:21) Sodium Chloride 0.9% Flush (Ns Flush) (10/15/17 20:30) Morphine Inj (Morphine Inj) (10/15/17 20:45) Ondansetron Inj (Zofran Inj) (10/15/17 20:45) Acetaminophen (Tylenol) (10/15/17 20:45) Sodium Chlor 0.9% 1000 Ml Inj (Ns 1000 M (10/15/17 20:45) Labs Laboratory Tests Test 10/15/17 20:25 10/15/17 22:41 White Blood Count 14.6 TH/MM3 Red Blood Count 4.31 MIL/MM3 Hemoglobin 13.6 GM/DL Hematocrit 39.3 % Mean Corpuscular Volume 91.4 FL Mean Corpuscular Hemoglobin 31.6 PG Mean Corpuscular Hemoglobin Concent 34.5 % Red Cell Distribution Width 13.6 % Platelet Count 262 TH/MM3 Mean Platelet Volume 7.9 FL Neutrophils (%) (Auto) 59.5 % Lymphocytes (%) (Auto) 32.2 % Monocytes (%) (Auto) 5.1 % Eosinophils (%) (Auto) 2.3 % Basophils (%) (Auto) 0.9 % Neutrophils # (Auto) 8.7 TH/MM3 Lymphocytes # (Auto) 4.7 TH/MM3 Monocytes # (Auto) 0.7 TH/MM3 Eosinophils # (Auto) 0.3 TH/MM3 Basophils # (Auto) 0.1 TH/MM3 CBC Comment DIFF FINAL Differential Comment Blood Urea Nitrogen 20 MG/DL Creatinine 0.59 MG/DL Random Glucose 80 MG/DL Total Protein 7.5 GM/DL Albumin 4.0 GM/DL Calcium Level 8.7 MG/DL Alkaline Phosphatase 72 U/L Aspartate Amino Transf (AST/SGOT) 16 U/L Alanine Aminotransferase (ALT/SGPT) 18 U/L Total Bilirubin 0.8 MG/DL Sodium Level 140 MEQ/L Potassium Level 4.0 MEQ/L Chloride Level 110 MEQ/L Carbon Dioxide Level 24.0 MEQ/L Anion Gap 6 MEQ/L Estimat Glomerular Filtration Rate 139 ML/MIN Lactic Acid Level 0.7 mmol/L Lipase 138 U/L MDM Medical Decision Making Medical Screen Exam Complete: Yes Emergency Medical Condition: Yes Differential Diagnosis Hemorrhagic cystitis versus pyelonephritis versus endometriosis versus bladder mass versus UTI versus other Narrative Course 37-year-old female with PMH of endometriosis presents to the ED for evaluation of 3 day history of worsening 8/10 left lower quadrant abdominal pain, pink tinged urine, chills, nausea. Abdominal pain onset gradual, described as constant. No alleviating or exacerbating factors reported. She endorses chronic urinary urgency, no worse today. Last bowel movement this morning, well formed, nonbloody. Patient also complains of left-sided back pain. She denies recent history of fever, chills, cough. Vitals reviewed. Physical exam reveals tenderness to palpation in the left lower quadrant, suprapubic area and left CVA tenderness, otherwise unremarkable. IV was established. Patient was 4 mg morphine, 4 mg Zofran, 1 L normal saline. Leukocytosis of 14.6 No concerning abnormalities of the CMP. UA pending. Patient signed out to Dr. Avelar at end of shift. Please see his note for disposition. Danelle Branham Oct 15, 2017 20:21
[2017-10-15] MEDS ORDERED: SODIUM CHLORIDE 0.9% FLUSH 10 ML FLUSH IV FLUSH PRN (20:30)
[2017-10-15 20:36] VITALS: BP 138/90; PULSE 87; RESP 16; TEMP 98.5; O2SAT 99
[2017-10-15] MEDS ORDERED: SODIUM CHLOR 0.9% 1000 ML INJ 1,000 ML IV ONE (20:45)
[2017-10-15] MEDS ORDERED: ONDANSETRON HCL 4 MG/2 ML VIAL IV PUSH ONE (20:45)
[2017-10-15] MEDS ORDERED: ACETAMINOPHEN 500 MG CPLT PO ONE (20:45)
[2017-10-15] MEDS ORDERED: MORPHINE SULFATE 4 MG/ML INJ IV PUSH ONE (20:45)
[2017-10-15 21:06] LABS: AUTOMATED NEUTROPHIL # 8.7 TH/MM3 (1.8-7.7); BASOPHIL # 0.1 TH/MM3 (0-0.2); BASOPHIL % 0.9 % (0.0-2.0); EOSINOPHIL # 0.3 TH/MM3 (0-0.4); EOSINOPHIL % 2.3 % (0.0-4.0); HEMATOCRIT 39.3 % (35.0-46.0); HEMO FLAGS DIFF FINAL; LYMPH % 32.2 % (9.0-44.0); LYMPHOCYTE # 4.7 TH/MM3 (1.0-4.8); MEAN CELL VOLUME 91.4 FL (80.0-100.0); MEAN CORPUSCULAR HEMOGLOBIN 31.6 PG (27.0-34.0); MEAN CORPUSCULAR HGB CONC 34.5 % (32.0-36.0); MONO % 5.1 % (0.0-8.0); NEUT % 59.5 % (16.0-70.0); PLATELET COUNT 262 TH/MM3 (150-450); RED BLOOD COUNT 4.31 MIL/MM3 (4.00-5.30); RED CELL DISTRIBUTION WIDTH 13.6 % (11.6-17.2); WHITE BLOOD COUNT 14.6 TH/MM3 (4.0-11.0)
[2017-10-15 21:14] LABS: ANION GAP 6 MEQ/L (5-15); AST (GOT) 16 U/L (15-37); BLOOD UREA NITROGEN 20 MG/DL (7-18); CHLORIDE 110 MEQ/L (98-107); GLOMERULAR FILTRATION RATE 139 ML/MIN (>89); SODIUM (NA) 140 MEQ/L (136-145)
[2017-10-15 21:15] LABS: ALT (GPT) 18 U/L (10-53)
[2017-10-15 21:17] LABS: ALKALINE PHOSPHATASE 72 U/L (45-117); TOTAL BILIRUBIN ADULT 0.8 MG/DL (0.2-1.0)
[2017-10-15 23:21] LABS: BLOOD, URINE LARGE (NEG); GLUCOSE,URINE NEG (NEG); KETONE, URINE NEG (NEG); NITRITE,URINE NEG (NEG)
[2017-10-15 23:27] LABS: URINE COLOR LIGHT-RED (YELLW/STRAW)
[2017-10-15 23:48] LABS: RBC, URINE INNUM /hpf (0-3)
[2017-10-15 23:49] LABS: BACTERIA, URINE OCC /hpf; COMMENT (UR) CULTURE INDICATED; CULTURE IF INDICATED CULTURE INDICATED; MUCUS URINE OCC /lpf (OCC); SQUAMOUS EPITHELIAL CELL URINE > 8 /hpf (0-5)
[2017-10-16] MEDS ORDERED: SULFAMETHOXAZOLE-TRIMETHOPRIM DS 800-160 MG TAB PO ONE (00:30)
--- NOTE | 2017-10-16 00:31 | PD ---
Physical Exam Date Seen by Provider: Oct 16, 2017 Time Seen by Provider: 00:31 Narrative Patient has a large UTI no allergies to antibiotics Bactrim by mouth was given and to be discharged with a prescription for Bactrim, UTI Data Data Last Documented VS Vital Signs Date Time Temp Pulse Resp B/P (MAP) Pulse Ox O2 Delivery O2 Flow Rate FiO2 10/15/17 20:36 98.5 87 16 138/90 (106) 99 Orders Orders Complete Blood Count With Diff (10/15/17 20:21) Comprehensive Metabolic Panel (10/15/17 20:21) Lipase (10/15/17 20:21) Lactic Acid (10/15/17 20:21) Urinalysis - C+S If Indicated (10/15/17 20:21) Iv Access Insert/Monitor (10/15/17 20:21) Ecg Monitoring (10/15/17 20:21) Oximetry (10/15/17 20:21) Sodium Chloride 0.9% Flush (Ns Flush) (10/15/17 20:30) Morphine Inj (Morphine Inj) (10/15/17 20:45) Ondansetron Inj (Zofran Inj) (10/15/17 20:45) Acetaminophen (Tylenol) (10/15/17 20:45) Sodium Chlor 0.9% 1000 Ml Inj (Ns 1000 M (10/15/17 20:45) Urine Culture (10/15/17 22:41) Sulfamet-Trimeth Ds 800-160 Mg (Bactrim (10/16/17 00:30) Labs Laboratory Tests Test 10/15/17 20:25 10/15/17 22:41 White Blood Count 14.6 TH/MM3 Red Blood Count 4.31 MIL/MM3 Hemoglobin 13.6 GM/DL Hematocrit 39.3 % Mean Corpuscular Volume 91.4 FL Mean Corpuscular Hemoglobin 31.6 PG Mean Corpuscular Hemoglobin Concent 34.5 % Red Cell Distribution Width 13.6 % Platelet Count 262 TH/MM3 Mean Platelet Volume 7.9 FL Neutrophils (%) (Auto) 59.5 % Lymphocytes (%) (Auto) 32.2 % Monocytes (%) (Auto) 5.1 % Eosinophils (%) (Auto) 2.3 % Basophils (%) (Auto) 0.9 % Neutrophils # (Auto) 8.7 TH/MM3 Lymphocytes # (Auto) 4.7 TH/MM3 Monocytes # (Auto) 0.7 TH/MM3 Eosinophils # (Auto) 0.3 TH/MM3 Basophils # (Auto) 0.1 TH/MM3 CBC Comment DIFF FINAL Differential Comment Blood Urea Nitrogen 20 MG/DL Creatinine 0.59 MG/DL Random Glucose 80 MG/DL Total Protein 7.5 GM/DL Albumin 4.0 GM/DL Calcium Level 8.7 MG/DL Alkaline Phosphatase 72 U/L Aspartate Amino Transf (AST/SGOT) 16 U/L Alanine Aminotransferase (ALT/SGPT) 18 U/L Total Bilirubin 0.8 MG/DL Sodium Level 140 MEQ/L Potassium Level 4.0 MEQ/L Chloride Level 110 MEQ/L Carbon Dioxide Level 24.0 MEQ/L Anion Gap 6 MEQ/L Estimat Glomerular Filtration Rate 139 ML/MIN Lactic Acid Level 0.7 mmol/L Lipase 138 U/L Urine Color LIGHT-RED Urine Turbidity HAZY Urine pH 6.0 Urine Specific [place] 1.015 Urine Protein 30 mg/dL Urine Glucose (UA) NEG mg/dL Urine Ketones NEG mg/dL Urine Occult Blood LARGE Urine Nitrite NEG Urine Bilirubin NEG Urine Urobilinogen LESS THAN 2.0 MG/DL Urine Leukocyte Esterase LARGE Urine RBC INNUM /hpf Urine WBC 25-49 /hpf Urine WBC Clumps OCC Urine Squamous Epithelial Cells > 8 /hpf Urine Bacteria OCC /hpf Urine Mucus OCC /lpf Microscopic Urinalysis Comment CULTURE INDICATED MDM Supervised Visit with DANY: Yes Diagnosis Primary Impression: UTI (urinary tract infection) Qualified Codes: N30.00 - Acute cystitis without hematuria Additional Impression: Abdominal pain Qualified Codes: R10.30 - Lower abdominal pain, unspecified Scripts Phenazopyridine (Pyridium) 100 Mg Tab 100 MG PO Q8HR for Dysuria, #6 TAB 0 Refills Prov: Gregorio Avelar MD 10/16/17 Sulfamethoxazole-Trimethoprim (Bactrim DS) 800-160 Mg Tab 1 TAB PO BID for Infection, #14 TAB 0 Refills Prov: Gregorio Avelar MD 10/16/17 Disposition: 01 DISCHARGE HOME Condition: Good Gregorio Avelar MD Oct 16, 2017 00:31
[2017-10-16] MEDS ORDERED: BACT800T5 PO (00:36)
[2017-10-16] MEDS ORDERED: PHEN0.4T PO (00:36)
[2017-10-16] MEDS ORDERED: PHENAZOPYRIDINE HCL 200 MG TAB PO ONE (00:45)
== END 2017-10-16 01:05 | disposition home or self-care (01) ==
LOC: NEPC 18:09
DX: N30.00 Acute cystitis without hematuria (principal); B96.89 Other specified bacterial agents as the cause of diseases classified elsewhere; F17.200 Nicotine dependence, unspecified, uncomplicated
CPT/HCPCS: 80053; 81001; 83605; 83690; 85025; 87077; 87086; 87186; 96361; 96374; 96375; 99284; J2270; J2405; J7030

== ENCOUNTER 2017-11-14 06:44 | Emergency (ER) | payer MEDICAID ==
[~2017-11-14] VITALS: Ht 167.6 cm; Wt 60.0 kg
[~2017-11-14 06:44] MED LIST changes: +PHEN0.4T PO
[2017-11-14 06:45] VITALS: BP 130/84; PULSE 98; RESP 16; TEMP 98.8; O2SAT 97
[2017-11-14] MEDS ORDERED: HYDR-3583 PO (07:18)
[2017-11-14] MEDS ORDERED: KETOROLAC TROMETHAMINE 60 MG/2 ML (IM) VIAL IM ONE (07:30)
[2017-11-14 07:49] LABS: BILIRUBIN, URINE NEG (NEG); BLOOD, URINE MOD (NEG); GLUCOSE,URINE NEG (NEG); KETONE, URINE NEG (NEG); MUCUS URINE FEW /lpf (OCC); NITRITE,URINE NEG (NEG); PH, URINE 6.5 (5.0-8.5); SQUAMOUS EPITHELIAL CELL URINE <1 /hpf (0-5); URINE COLOR YELLOW (YELLW/STRAW); URINE LEUKOCYTE ESTERASE NEG (NEG)
--- NOTE | 2017-11-14 07:49 | PD ---
HPI Chief Complaint: Abdominal Pain Time Seen by Provider: 07:18 Travel History International Travel<30 days: No Contact w/Intl Traveler<30days: No Traveled to known affect area: No History of Present Illness HPI 37 year-old woman, history of endometriosis, presents to the emergency department complaining of pelvic lower abdominal and vaginal pain. So the history of hysterectomy in the past, as well as a unilateral oophorectomy for endometriosis couple years ago. Pain started a couple days ago after she had a bowel movement with some constipation. Bowel movement been normal since then but despite that she's had worsening pelvic pain. No vaginal discharge. No urinary symptoms. No fevers or chills. Sexually active one male partner. He has no symptoms. History Past Medical History Narrative Medical Endometriosis Menopausal: Yes : 4 Para: 4 Social History Alcohol Use: No Tobacco Use: Yes (1 ppd) Allergies-Medications (Allergen,Severity, Reaction): Coded Allergies: oxycodone (Unverified Allergy, Severe, Rash, 11/14/17) *MDRO Multi-Drug Resistant Organism (Verified Allergy, Unknown, 11/14/17) MRSA Reported Meds & Prescriptions Reported Meds & Active Scripts Active Ibuprofen 600 Mg Tab 600 Mg PO Q8H PRN 7 Days Tylenol (Acetaminophen) 325 Mg Tab 650 Mg PO Q6H PRN Reported Hydrocodone-Acetaminophen 10-325 mg Tab 1 Tab PO Q4H PRN Review of Systems Except as stated in HPI: all other systems reviewed are Neg Physical Exam Narrative GENERAL: Well 37 year-old woman, no acute distress. SKIN: Focused skin assessment warm/dry. NECK: Trachea midline. No JVD. CARDIOVASCULAR: Regular rate and rhythm. No murmur appreciated. RESPIRATORY: No accessory muscle use. Clear to auscultation. Breath sounds equal bilaterally. GASTROINTESTINAL: Abdomen is flat and soft. Mild suprapubic tenderness. No rebound or guarding. MUSCULOSKELETAL: No obvious deformities. No clubbing. No cyanosis. No edema. NEUROLOGICAL: Awake and alert. No obvious cranial nerve deficits. Motor grossly within normal limits. Normal speech. PSYCHIATRIC: Appropriate mood and affect; insight and judgment normal. Data Data Last Documented VS Vital Signs Date Time Temp Pulse Resp B/P (MAP) Pulse Ox O2 Delivery O2 Flow Rate FiO2 11/14/17 07:12 18 11/14/17 06:45 98.8 98 130/84 (99) 97 Room Air Orders Orders Urinalysis - C+S If Indicated (11/14/17 07:20) Ketorolac Inj (Toradol Inj) (11/14/17 07:30) Gc And Chlamydia Pcr (11/14/17 07:30) Wet Prep Profile (11/14/17 07:30) Ct Abd/Pel W/O Iv Contrast (11/14/17 ) Labs Laboratory Tests Test 11/14/17 07:40 11/14/17 08:10 Urine Color YELLOW Urine Turbidity CLEAR Urine pH 6.5 Urine Specific Barton 1.019 Urine Protein NEG mg/dL Urine Glucose (UA) NEG mg/dL Urine Ketones NEG mg/dL Urine Occult Blood MOD Urine Nitrite NEG Urine Bilirubin NEG Urine Urobilinogen LESS THAN 2.0 MG/DL Urine Leukocyte Esterase NEG Urine RBC 47 /hpf Urine WBC 3 /hpf Urine Squamous Epithelial Cells <1 /hpf Urine Mucus FEW /lpf Microscopic Urinalysis Comment CULT NOT INDICATED Clue Cells (Wet Prep) NONE SEEN Vaginal Trichomonas (Wet Prep) PRESENT Vaginal Yeast (Wet Prep) NONE SEEN MDM Medical Decision Making Medical Screen Exam Complete: Yes Emergency Medical Condition: Yes Interpretation(s) LABS: UA with hematuria. Wet prep positive for Trichomonas. CT shows persistent soft tissue mass involving the anterior wall the pelvis and extending posteriorly involve the anterior superior aspect of the urinary bladder. Differential Diagnosis Endometriosis, UTI, pelvic infection, other Narrative Course Medical decision making INITIAL: Is a 37 year-old woman who presents to the emergency department complaining of suprapubic abdominal discomfort. I suspect is her endometriosis. We'll check a urine, we'll do a pelvic exam. She has no other symptoms suggestive of infection. She had some constipation but that appears to be resolved. Sutures normal bowel movement this morning at her pain persists. Recommend supportive treatment with NSAIDs. FINAL: Patient with pelvic pain, lower abdominal mass seen previously which explains hematuria. This seems to be an endometrioma in the anterior abdominal wall that involves the bladder wall. Is likely the source of the patient's pain. Recommend supportive treatment. Diagnosis Primary Impression: Bladder mass Additional Impression: Endometriosis Additional Instructions: Take Naprosyn as needed for pain. Follow-up with your primary doctor for further evaluation. Med/Other Pt SpecificInfo: Prescription(s) given Scripts Naproxen (Naproxen) 500 Mg Tab 500 MG PO BID Y for PAIN SCALE 1 TO 10, #60 TAB 0 Refills Prov: Lucas Boston MD 11/14/17 Disposition: 01 DISCHARGE HOME Condition: Stable Lucas Boston MD Nov 14, 2017 07:49
--- NOTE | 2017-11-14 08:42 | RADRPT ---
EXAM DATE/TIME: 11/14/2017 08:20 [facility] COMPARISON: CT ABDOMEN & PELVIS W CONTRAST, March 17, 2016, 19:40. CT ABDOMEN & PELVIS W CONTRAST, April 05, 2017, 21:15. CT ABDOMEN & PELVIS W/O CONTRAST, July 16, 2016, 19:52. INDICATIONS : Pelvic pain for two days. ORAL CONTRAST: No oral contrast ingested. RADIATION DOSE: 3.94 CTDIvol (mGy) MEDICAL HISTORY : deep vein thrombosis SURGICAL HISTORY : Hysterectomy. IVC Filter placement. ENCOUNTER: Initial ACUITY: 2 days PAIN SCALE: 7/10 LOCATION: Bilateral pelvis TECHNIQUE: Volumetric scanning of the abdomen and pelvis was performed. Using automated exposure control and ad justment of the mA and/or kV according to patient size, radiation dose was kept as low as reasonably achievable to obtain optimal diagnostic quality images. DICOM format image data is available electro nically for review and comparison. FINDINGS: There is a persistent soft tissue mass which involves the anterior abdominal wall in the pelvis and e xtends posteriorly to involve the anterior superior aspect of the urinary bladder. The bladder compon ent of this mass measures 4.4 x 3.4 x 2.5 cm. There are tiny calcified nonobstructing bilateral renal calculi measuring 2 mm in greatest dimension. The kidneys remain enlarged bilaterally. There is no h ydronephrosis or acute obstructive uropathy. Inferior vena cava filter is noted. Evaluation of the solid organs of the abdomen is limited by the lack of intravenous contrast. The vis ualized lung bases are clear. CONCLUSION: 1. Persistent soft tissue mass which involves the anterior abdominal wall in the pelvis and extends p osteriorly to involve the anterior superior aspect of the urinary bladder. The bladder component of t his mass measures 4.4 x 3.4 x 2.5 cm. 2. Tiny bilateral calcified nonobstructing renal calculi are noted. 3. Enlarged kidneys. 4. No acute obstructive uropathy. Adan Nelson MD on November 14, 2017 at 8:29 Board Certified Radiologist. This report was verified electronically.
[2017-11-14] MEDS ORDERED: NAPR500T2 PO (08:58)
[2017-11-14] MEDS ORDERED: ACETAMINOPHEN/HYDROcodone 325 MG/5 MG TAB PO ONE (09:00)
[2017-11-14] MEDS ORDERED: metroNIDAZOLE 500 MG TAB PO ONE (09:15)
== END 2017-11-14 09:59 | disposition home or self-care (01) ==
LOC: NEPE 06:44
DX: N32.9 Bladder disorder, unspecified (principal); N80.9 Endometriosis, unspecified; K59.00 Constipation, unspecified; R31.9 Hematuria, unspecified; A59.9 Trichomoniasis, unspecified; N20.0 Calculus of kidney; N28.81 Hypertrophy of kidney; F17.200 Nicotine dependence, unspecified, uncomplicated; Z88.5 Allergy status to narcotic agent
CPT/HCPCS: 74176; 81001; 87210; 87491; 87591; 96372; 99285; J1885

== ENCOUNTER 2018-02-26 06:25 | Emergency (ER) | payer MEDICAID ==
[~2018-02-26] VITALS: Ht 167.6 cm; Wt 63.5 kg
[~2018-02-26 06:25] MED LIST changes: -BACT800T5 PO; -HYDR-3516 PO; +HYDR-3583 PO; +NAPR500T2 PO; -PHEN0.4T PO; -ZOFR4TAB3 SL
[2018-02-26 06:31] VITALS: BP 129/78; PULSE 103; RESP 28; TEMP 98.4; O2SAT 97
[2018-02-26] MEDS ORDERED: CHLORPHENIR/HYDROCOD LIQUID 8 MG/10 MG/5 ML CUP PO ONE (06:45)
[2018-02-26] MEDS ORDERED: RESP: LIDOCAINE HCL 2% 2 ML NEB NEB ONE (07:00)
[2018-02-26] MEDS ORDERED: SODIUM CHLORIDE 0.9% FLUSH 10 ML FLUSH IVF PRN (07:00)
--- NOTE | 2018-02-26 07:22 | RADRPT ---
EXAM DATE/TIME: 02/26/2018 07:07 [facility] COMPARISON: CHEST SINGLE AP, April 05, 2017, 19:47. INDICATIONS : Cough, chest pain for 3 days MEDICAL HISTORY : Deep venous thrombosis. SURGICAL HISTORY : Hysterectomy. IVC Filter placement ENCOUNTER: Initial ACUITY: 3 days PAIN SCORE: 8/10 LOCATION: Bilateral chest FINDINGS: A single view of the chest demonstrates the lungs to be symmetrically aerated without evidence of mas s, infiltrate or effusion. The cardiomediastinal contours are unremarkable. Osseous structures are intact. There is a mild scoliosis. CONCLUSION: No acute disease. There is no evidence of pneumonia. Jose Patterson MD on February 26, 2018 at 7:19 Board Certified Radiologist. This report was verified electronically.
[2018-02-26 07:29] LABS: WHITE BLOOD COUNT 9.2 TH/MM3 (4.0-11.0)
[2018-02-26 07:30] LABS: AUTOMATED NEUTROPHIL # 5.3 TH/MM3 (1.8-7.7); BASOPHIL # 0.1 TH/MM3 (0-0.2); BASOPHIL % 0.6 % (0.0-2.0); EOSINOPHIL # 0.4 TH/MM3 (0-0.4); EOSINOPHIL % 4.2 % (0.0-4.0); HEMATOCRIT 40.3 % (35.0-46.0); HEMOGLOBIN 14.2 GM/DL (11.6-15.3); LYMPH % 30.1 % (9.0-44.0); LYMPHOCYTE # 2.8 TH/MM3 (1.0-4.8); MEAN CELL VOLUME 89.5 FL (80.0-100.0); MEAN CORPUSCULAR HEMOGLOBIN 31.6 PG (27.0-34.0); MEAN CORPUSCULAR HGB CONC 35.3 % (32.0-36.0); MEAN PLATELET VOLUME 7.9 FL (7.0-11.0); MONO % 7.3 % (0.0-8.0); MONOCYTE # 0.7 TH/MM3 (0-0.9); NEUT % 57.8 % (16.0-70.0); PLATELET COUNT 243 TH/MM3 (150-450)
[2018-02-26] MEDS ORDERED: KETOROLAC TROMETHAMINE 30 MG/ML (IVP) VIAL IV PUSH ONE (07:30)
[2018-02-26] MEDS ORDERED: SODIUM CHLOR 0.9% 1000 ML INJ 1,000 ML IV ONE (07:30)
--- NOTE | 2018-02-26 07:30 | PD ---
HPI . Cough Chief Complaint: Cold / Flu Symptoms Time Seen by Provider: 06:43 Travel History International Travel<30 days: No Contact w/Intl Traveler<30days: No Traveled to known affect area: No History of Present Illness HPI This patient presents with a chief complaint of a cough. Onset of symptoms was 5 days ago. She states that it started as a sore throat. She then developed congestion followed by a fever, cough, myalgias and shortness of breath. She rates her pain at 10/10. She has not noticed any modifying factors. Her symptoms have been getting progressively worse. She states that she had had no sick exposures prior to the onset of her symptoms but that her son has subsequently become ill with a similar illness. PFSH Past Medical History Hx Anticoagulant Therapy: Yes (hx blood clot in leg does not currently take meds.. can't afford) Blood Disorders: Yes (LLE DVT DX 01/2010) Cardiovascular Problems: No Diminished Hearing: No Deep Vein Thrombosis: Yes Gastrointestinal Disorders: No Genitourinary: Yes (Endometriosis Mass found on bladder 03/17/16) Musculoskeletal: No Neurologic: No Reproductive: Yes (Mass found on left ovary 03/17/16) Respiratory: No Immunizations Current: Yes Tetanus Vaccination: < 5 Years Influenza Vaccination: No ?: Not Menopausal: Yes : 4 Para: 4 Tubal Ligation: Yes Past Surgical History Section: Yes (X 4) Gynecologic Surgery: Yes (left ovary removed) Hysterectomy: Yes (2012) Other Surgery: Yes (IVC filter placement and DVT removal-LEFT LEG) Family History Family Hypercholesterolemia: Yes Social History Alcohol Use: No Tobacco Use: Yes (1/2 ppd) Substance Use: No Allergies-Medications (Allergen,Severity, Reaction): Coded Allergies: oxycodone (Unverified Allergy, Severe, Rash, 11/14/17) *MDRO Multi-Drug Resistant Organism (Verified Allergy, Unknown, 11/14/17) MRSA Reported Meds & Prescriptions Reported Meds & Active Scripts Active Naproxen 500 Mg Tab 500 Mg PO BID PRN Reported Hydrocodone-Acetaminophen 10-325 mg Tab 1 Tab PO Q4H PRN Review of Systems Except as stated in HPI: all other systems reviewed are Neg General / Constitutional: Positive: Fever, Chills HENT: Positive: Sore Throat, Congestion Cardiovascular: Positive: Chest Pain or Discomfort Respiratory: Positive: Cough, Shortness of Breath Gastrointestinal: Positive: Abdominal Pain Physical Exam Narrative GENERAL: The patient is awake and alert. SKIN: Warm and clammy. HEAD: Normocephalic. Atraumatic. EYES: Pupils equal and round. No scleral icterus. No injection or drainage. ENT: No nasal bleeding or discharge. Mucous membranes pink and moist. NECK: Trachea midline. Full range of motion without pain.. No palpable cervical lymphadenopathy. CARDIOVASCULAR: Regular rate and rhythm. Mild tachycardia at 100-105. RESPIRATORY: No accessory muscle use. Coarse bibasilar wheezing which clears with coughing. Breath sounds equal bilaterally. GASTROINTESTINAL: Abdomen soft. Nontender. Bowel sounds present. Nondistended. MUSCULOSKELETAL: No obvious deformities. NEUROLOGICAL: Awake and alert. No obvious cranial nerve deficits. Motor grossly within normal limits. Normal speech. PSYCHIATRIC: Appropriate mood and affect; insight and judgment normal. Data Data Last Documented VS Vital Signs Date Time Temp Pulse Resp B/P (MAP) Pulse Ox O2 Delivery O2 Flow Rate FiO2 02/26/18 07:50 97 21 02/26/18 06:31 98.4 103 28 129/78 (95) Orders Orders Chlorphenir-Hydrocodone Liq (Tussionex L (02/26/18 06:45) Albuterol-Ipratropium Neb (Duoneb Neb) (02/26/18 07:00) Lidocaine Pf 2% Neb (Lidocaine Pf 2% Neb (02/26/18 07:00) Basic Metabolic Panel (Bmp) (02/26/18 06:54) Complete Blood Count With Diff (02/26/18 06:54) Lactic Acid Sepsis Protocol (02/26/18 06:54) Influenzae A/B Antigen (02/26/18 06:54) Blood Culture (02/26/18 06:54) Chest, Single Ap (02/26/18 06:54) Iv Access Insert/Monitor (02/26/18 06:54) Sodium Chloride 0.9% Flush (Ns Flush) (02/26/18 07:00) Ketorolac Inj (Toradol Inj) (02/26/18 07:30) Sodium Chlor 0.9% 1000 Ml Inj (Ns 1000 M (02/26/18 07:30) Labs Laboratory Tests Test 02/26/18 07:15 White Blood Count 9.2 TH/MM3 Red Blood Count 4.50 MIL/MM3 Hemoglobin 14.2 GM/DL Hematocrit 40.3 % Mean Corpuscular Volume 89.5 FL Mean Corpuscular Hemoglobin 31.6 PG Mean Corpuscular Hemoglobin Concent 35.3 % Red Cell Distribution Width 13.0 % Platelet Count 243 TH/MM3 Mean Platelet Volume 7.9 FL Neutrophils (%) (Auto) 57.8 % Lymphocytes (%) (Auto) 30.1 % Monocytes (%) (Auto) 7.3 % Eosinophils (%) (Auto) 4.2 % Basophils (%) (Auto) 0.6 % Neutrophils # (Auto) 5.3 TH/MM3 Lymphocytes # (Auto) 2.8 TH/MM3 Monocytes # (Auto) 0.7 TH/MM3 Eosinophils # (Auto) 0.4 TH/MM3 Basophils # (Auto) 0.1 TH/MM3 CBC Comment DIFF FINAL Differential Comment Blood Urea Nitrogen 15 MG/DL Creatinine 0.72 MG/DL Random Glucose 92 MG/DL Calcium Level 8.9 MG/DL Sodium Level 143 MEQ/L Potassium Level 3.4 MEQ/L Chloride Level 109 MEQ/L Carbon Dioxide Level 26.6 MEQ/L Anion Gap 7 MEQ/L Estimat Glomerular Filtration Rate 110 ML/MIN Lactic Acid Level 2.0 mmol/L MDM Medical Decision Making Medical Screen Exam Complete: Yes Emergency Medical Condition: Yes Differential Diagnosis Differential diagnosis includes but is not limited to viral respiratory illness , bronchitis, pneumonia, allergies, CHF, asthma/COPD. Narrative Course This patient presents with a 5 day history of a cough and other upper respiratory type symptoms. Symptoms have been getting progressively worse. She has some coarse expiratory wheezing on exam. I have ordered Tussionex, albuterol nebs and lidocaine neb for her coughing. Pneumonia workup is in process including a flu swab. I am also giving her a liter of fluid because she is a little bit tachycardic and tachypnea, meeting SIRS criteria. Last Impressions Chest X-Ray 02/26/18 0654 Signed Impressions: Service Date/Time: Wednesday, February 26, 2018 07:07 - CONCLUSION: No acute disease. There is no evidence of pneumonia. Jose Patterson MD CBC & BMP Diagram 02/26/18 07:15 Calcium Level 8.9 LA 2.0 Flu screen is positive. This patient presents to us 5 days into a respiratory illness. Her flu screen is positive. She is outside of the window for treatment with Tamiflu. She will be treated symptomatically. Sepsis Criteria SIRS Criteria (2 or more): Heart rate over 90, RR > 20 or PaCO2 < 32 Criteria Outcome: Meets SIRS criteria Diagnosis Primary Impression: Cough Additional Impression: Influenza Patient Instructions: General Instructions, H1N1 Influenza in Children (GEN) Additional Instructions: Drink lots of fluids. Tylenol and/or ibuprofen as needed for fever and body aches. [id number] cough syrup such as Delsym as needed. Disposition: 01 DISCHARGE HOME Condition: Stable Chioma Bobo MD Feb 26, 2018 07:30
[2018-02-26] MEDS: RESP: ALBUTEROL 2.5 MG/IPRATROPIUM 0.5 MG NEB (SCH) INH ×2 (07:49→07:50)
[2018-02-26 07:50] VITALS: O2SAT 97
[2018-02-26 08:03] LABS: BICARBONATE 26.6 MEQ/L (21.0-32.0); CALCIUM 8.9 MG/DL (8.5-10.1); CREATININE 0.72 MG/DL (0.50-1.00)
== END 2018-02-26 09:22 | disposition home or self-care (01) ==
LOC: NEPC 06:25
DX: J11.1 Influenza due to unidentified influenza virus with other respiratory manifestations (principal); F17.200 Nicotine dependence, unspecified, uncomplicated; Z86.718 Personal history of other venous thrombosis and embolism
CPT/HCPCS: 71045; 80048; 83605; 85025; 87040; 87804; 94640; 94664; 96374; 99284; J1885; J7030

== ENCOUNTER 2018-05-12 20:18 | Observation (INO) | payer MEDICAID ==
[~2018-05-12] VITALS: Ht 167.6 cm; Wt 66.0 kg
[~2018-05-12 20:18] MED LIST changes: -IBUP-232 PO; -TYLE325T PO
[2018-05-12 21:47] VITALS: BP 147/87; PULSE 78; RESP 20; TEMP 98.3; O2SAT 99
[2018-05-13] MEDS ORDERED: FAMOTIDINE 20 MG/2 ML VIAL IV PUSH ONE (00:30)
[2018-05-13] MEDS ORDERED: LIDOCAINE VISCOUS 2% SOLN 15 ML UDC PO ONE (00:30)
[2018-05-13] MEDS ORDERED: ALUMINUM/MAGNESIUM/SIMETH 30 ML CUP PO ONE (00:30)
[2018-05-13] MEDS ORDERED: SODIUM CHLORIDE 0.9% FLUSH 10 ML FLUSH IV FLUSH PRN ×2 (00:30→03:15)
[2018-05-13 01:20] LABS: AUTOMATED NEUTROPHIL # 6.2 TH/MM3 (1.8-7.7); BASOPHIL # 0.1 TH/MM3 (0-0.2); BASOPHIL % 1.1 % (0.0-2.0); EOSINOPHIL # 0.3 TH/MM3 (0-0.4); EOSINOPHIL % 2.5 % (0.0-4.0); HEMATOCRIT 36.9 % (35.0-46.0); HEMOGLOBIN 12.9 GM/DL (11.6-15.3); LYMPH % 32.7 % (9.0-44.0); LYMPHOCYTE # 3.5 TH/MM3 (1.0-4.8); MEAN CELL VOLUME 88.9 FL (80.0-100.0); MEAN CORPUSCULAR HGB CONC 34.9 % (32.0-36.0); MEAN PLATELET VOLUME 8.8 FL (7.0-11.0); MONO % 5.7 % (0.0-8.0); MONOCYTE # 0.6 TH/MM3 (0-0.9); PLATELET COUNT 223 TH/MM3 (150-450); RED BLOOD COUNT 4.15 MIL/MM3 (4.00-5.30); RED CELL DISTRIBUTION WIDTH 13.8 % (11.6-17.2); WHITE BLOOD COUNT 10.7 TH/MM3 (4.0-11.0)
[2018-05-13] MEDS ORDERED: MORPHINE SULFATE 4 MG/ML INJ IV PUSH ONE (01:45)
[2018-05-13 01:58] LABS: ALKALINE PHOSPHATASE 58 U/L (45-117); TOTAL BILIRUBIN ADULT 0.6 MG/DL (0.2-1.0); TOTAL PROTEIN 6.8 GM/DL (6.4-8.2)
[2018-05-13 02:09] LABS: ALBUMIN 3.6 GM/DL (3.4-5.0); ALT (GPT) 14 U/L (10-53); AST (GOT) 22 U/L (15-37); BICARBONATE 22.3 MEQ/L (21.0-32.0); BLOOD UREA NITROGEN 17 MG/DL (7-18); CALCIUM 8.4 MG/DL (8.5-10.1); CHLORIDE 111 MEQ/L (98-107); CREATININE 0.61 MG/DL (0.50-1.00); GLOMERULAR FILTRATION RATE 133 ML/MIN (>89); GLUCOSE,RANDOM 74 MG/DL (74-106); SODIUM (NA) 141 MEQ/L (136-145)
--- NOTE | 2018-05-13 02:12 | RADRPT ---
EXAM DATE: 05/13/2018 1:59 AM EDT AGE/SEX: 38 years / Female INDICATIONS: Left flank pain. CLINICAL DATA: This is the patient's initial encounter. Patient reports that signs and symptoms have been present for 1 day and indicates a pain score of 8/10. MEDICAL/SURGICAL HISTORY: Deep venous thrombosis. IVC Filter placement. Hysterectomy. RADIATION DOSE: 8.13 CTDI (mGy) COMPARISON: [facility] [place], CT ABDOMEN & PELVIS W/O CONTRAST, 11/14/2017. . TECHNIQUE: Multiple contiguous axial images were obtained through the abdomen. Images were obtained using multiple row detector helical technique. Using dose reduction techniques, radiation dose was ke pt as low as reasonably achievable to obtain optimal diagnostic quality images. FINDINGS: Lower Lungs: There is minimal patchy density seen at the lung bases likely related to minimal atelect asis. Liver: The liver has a homogeneous density without space-occupying lesion. There is no dilation of th e biliary tree. Spleen: Homogeneous density without enlargement. Pancreas: Unremarkable without mass or calcification. Kidneys: There is a 2 mm nonobstructing stone seen in the superior left collecting system. There is a 2 mm nonobstructing right renal stone seen at the inferior right collecting system. Adrenal Glands: Unremarkable. Aorta: The aorta and proximal iliac vessels are grossly unremarkable without aneurysmal dilation. Bowel/Mesentery: There is a bowel anastomosis suture seen in the left mid abdomen Abdominal Wall: There is induration in the inferior anterior abdominal wall subcutaneous fat in the pelvis likely related to postoperative change. Retroperitoneum: There is an IVC filter. Significant adenopathy is not seen. Bladder: There is a 4 cm mass in the anterior superior aspect of the urinary bladder. Reproductive Organs: There is a 3.8 cm cystic mass seen in the right adnexa. There is small amount o f free fluid seen in the cul-de-sac. Inguinal: Normal size lymph nodes are seen in the inguinal regions. Bony Structures: Unremarkable. CONCLUSION: 1. Small nonobstructing renal stone seen bilaterally. 2. 4 cm urinary bladder mass. 3. Suspected postoperative change in the subcutaneous fat at the lower anterior abdominal wall in th e pelvis. Electronically signed by: Lamberto Avila MD 05/13/2018 2:11 AM EDT
[2018-05-13 02:16] LABS: BILIRUBIN, URINE NEG (NEG); BLOOD, URINE SMALL (NEG); GLUCOSE,URINE NEG (NEG); KETONE, URINE NEG (NEG); MUCUS URINE FEW /lpf (OCC); NITRITE,URINE NEG (NEG); URINE COLOR YELLOW (YELLW/STRAW); URINE LEUKOCYTE ESTERASE NEG (NEG)
[2018-05-13] MEDS ORDERED: ROBA750T PO (02:44)
[2018-05-13] MEDS: SODIUM CHLOR 0.9% 1000 ML INJ 1,000 ML IV SCH ×2 (03:04→07:58)
[2018-05-13] MEDS ORDERED: ACETAMINOPHEN 325 MG TAB PO PRN (03:15)
[2018-05-13] MEDS ORDERED: MAGNESIUM HYDROXIDE SUSP 30 ML CUP PO PRN (03:15)
[2018-05-13] MEDS ORDERED: BISACODYL 10 MG SUPP RECTAL PRN (03:15)
[2018-05-13] MEDS ORDERED: SENNOSIDES 8.6 MG TAB PO PRN (03:15)
[2018-05-13] MEDS ORDERED: LACTULOSE SYRUP 20 GM/30 ML CUP PO PRN (03:15)
[2018-05-13] MEDS ORDERED: METOCLOPRAMIDE HCL 10 MG/2 ML VIAL IV PUSH PRN (03:15)
--- NOTE | 2018-05-13 03:36 | PD ---
HPI Chief Complaint: Abdominal Pain Time Seen by Provider: 23:34 Travel History International Travel<30 days: No Contact w/Intl Traveler<30days: No Traveled to known affect area: No History of Present Illness HPI pt has left CVA tenderness to the periumbilical area and hematuria , Hx of endometriosis and had a DVT and has IVC filter not currently on anticoagulation , pt denies N/V/D pt has left sided pain radiates from flank to LLQ , no constipation , no diarrhea , no Hx of renal stones Motrin did not allevaite her pain , she has appears slightly uncomfortable in ER accompanied by her family , PFSH Past Medical History Hx Anticoagulant Therapy: Yes (hx blood clot in leg does not currently take meds.. can't afford) Blood Disorders: Yes (LLE DVT DX 01/2010) Cardiovascular Problems: No Diminished Hearing: No Deep Vein Thrombosis: Yes Gastrointestinal Disorders: No Genitourinary: Yes (Endometriosis Mass found on bladder 03/17/16) Musculoskeletal: No Neurologic: No Reproductive: Yes (Mass found on left ovary 03/17/16) Respiratory: No Immunizations Current: Yes ?: Not Menopausal: Yes : 4 Para: 4 Tubal Ligation: Yes Past Surgical History Section: Yes (X 4) Gynecologic Surgery: Yes (left ovary removed) Hysterectomy: Yes (2012) Other Surgery: Yes (IVC filter placement and DVT removal-LEFT LEG) Family History Family Hypercholesterolemia: Yes Social History Alcohol Use: No Tobacco Use: Yes (11/30 ppd) Substance Use: No Allergies-Medications (Allergen,Severity, Reaction): Coded Allergies: oxycodone (Unverified Allergy, Severe, Rash, 05/12/18) *MDRO Multi-Drug Resistant Organism (Verified Allergy, Unknown, 05/12/18) MRSA Reported Meds & Prescriptions Reported Meds & Active Scripts Active Naproxen 500 Mg Tab 500 Mg PO BID PRN Review of Systems Except as stated in HPI: all other systems reviewed are Neg Gastrointestinal: Positive: Abdominal Pain Genitourinary: Positive: Flank Pain Physical Exam Narrative GENERAL: appears mildly uncomfortable non toxic appearing SKIN: Warm and dry. HEAD: Atraumatic. Normocephalic. EYES: Pupils equal and round. No scleral icterus. No injection or drainage. ENT: No nasal bleeding or discharge. Mucous membranes pink and moist. NECK: Trachea midline. No JVD. CARDIOVASCULAR: Regular rate and rhythm. RESPIRATORY: No accessory muscle use. Clear to auscultation. Breath sounds equal bilaterally. GASTROINTESTINAL: Abdomen LLQ pain and left lateral pain on palpation . CVA tender left as well...Hepatic and splenic margins not palpable. MUSCULOSKELETAL: Extremities without clubbing, cyanosis, or edema. No obvious deformities. NEUROLOGICAL: Awake and alert. No obvious cranial nerve deficits. Motor grossly within normal limits. Five out of 5 muscle strength in the arms and legs. Normal speech. PSYCHIATRIC: Appropriate mood and affect; insight and judgment normal. Data Data Last Documented VS Vital Signs Date Time Temp Pulse Resp B/P (MAP) Pulse Ox O2 Delivery O2 Flow Rate FiO2 05/12/18 21:47 98.3 78 20 147/87 (107) 99 Orders Orders Iv Access Insert/Monitor (05/13/18 00:22) Ecg Monitoring (05/13/18 00:22) Oximetry (05/13/18 00:22) Sodium Chloride 0.9% Flush (Ns Flush) (05/13/18 00:30) Famotidine Inj (Pepcid Inj) (05/13/18 00:30) Al-Mag Hy-Si 40-40-4 Mg/Ml Liq (Mag-Al P (05/13/18 00:30) Lidocaine 2% Viscous (Xylocaine 2% Visco (05/13/18 00:30) Complete Blood Count With Diff (05/13/18 01:02) Comprehensive Metabolic Panel (05/13/18 01:02) Lipase (05/13/18 01:02) Urinalysis - C+S If Indicated (05/13/18 01:42) Morphine Inj (Morphine Inj) (05/13/18 01:45) Ct Abd/Pel W/O Iv Contrast (05/13/18 ) Admit Order (Ed Use Only) (05/13/18 03:03) Place In Observation (05/13/18 ) Vital Signs (Adult) Q4H (05/13/18 03:04) Activity Oob Ad [place] (05/13/18 03:04) Intake + Output [facility].QSHIFT (05/13/18 03:04) Diet Regular Basic (05/13/18 Breakfast) Sodium Chlor 0.9% 1000 Ml Inj (Ns 1000 M (05/13/18 03:04) Sodium Chloride 0.9% Flush (Ns Flush) (05/13/18 03:15) Sodium Chloride 0.9% Flush (Ns Flush) (05/13/18 09:00) Metoclopramide Inj (Reglan Inj) (05/13/18 03:15) Case Management Consult (05/13/18 03:04) Scd Bilateral/Knee High [facility].BID (05/13/18 03:04) Ajay Bilateral/Knee High [facility].QSHIFT (05/13/18 03:05) Acetaminophen (Tylenol) (05/13/18 03:15) Docusate Sodium-Senna (Shnana-Colace) (05/13/18 09:00) Magnesium Hydroxide Liq (Milk Of Magnesi (05/13/18 03:15) Sennosides (Senokot) (05/13/18 03:15) Bisacodyl Supp (Dulcolax Supp) (05/13/18 03:15) Lactulose Liq (Lactulose Liq) (05/13/18 03:15) Consult Urology (05/13/18 ) Morphine Inj (Morphine Inj) (05/13/18 03:30) Labs Laboratory Tests Test 05/13/18 01:00 05/13/18 01:56 White Blood Count 10.7 TH/MM3 Red Blood Count 4.15 MIL/MM3 Hemoglobin 12.9 GM/DL Hematocrit 36.9 % Mean Corpuscular Volume 88.9 FL Mean Corpuscular Hemoglobin 31.0 PG Mean Corpuscular Hemoglobin Concent 34.9 % Red Cell Distribution Width 13.8 % Platelet Count 223 TH/MM3 Mean Platelet Volume 8.8 FL Neutrophils (%) (Auto) 58.0 % Lymphocytes (%) (Auto) 32.7 % Monocytes (%) (Auto) 5.7 % Eosinophils (%) (Auto) 2.5 % Basophils (%) (Auto) 1.1 % Neutrophils # (Auto) 6.2 TH/MM3 Lymphocytes # (Auto) 3.5 TH/MM3 Monocytes # (Auto) 0.6 TH/MM3 Eosinophils # (Auto) 0.3 TH/MM3 Basophils # (Auto) 0.1 TH/MM3 CBC Comment DIFF FINAL Differential Comment Blood Urea Nitrogen 17 MG/DL Creatinine 0.61 MG/DL Random Glucose 74 MG/DL Total Protein 6.8 GM/DL Albumin 3.6 GM/DL Calcium Level 8.4 MG/DL Alkaline Phosphatase 58 U/L Aspartate Amino Transf (AST/SGOT) 22 U/L Alanine Aminotransferase (ALT/SGPT) 14 U/L Total Bilirubin 0.6 MG/DL Sodium Level 141 MEQ/L Potassium Level 4.3 MEQ/L Chloride Level 111 MEQ/L Carbon Dioxide Level 22.3 MEQ/L Anion Gap 8 MEQ/L Estimat Glomerular Filtration Rate 133 ML/MIN Lipase 89 U/L Urine Color YELLOW Urine Turbidity CLEAR Urine pH 5.0 Urine Specific [place] 1.026 Urine Protein NEG mg/dL Urine Glucose (UA) NEG mg/dL Urine Ketones NEG mg/dL Urine Occult Blood SMALL Urine Nitrite NEG Urine Bilirubin NEG Urine Leukocyte Esterase NEG Urine RBC 2 /hpf Urine WBC LESS THAN 1 /hpf Urine Mucus FEW /lpf Microscopic Urinalysis Comment CULT NOT INDICATED MDM Medical Decision Making Medical Screen Exam Complete: Yes Emergency Medical Condition: Yes Medical Record Reviewed: Yes Differential Diagnosis pt has left sided pain could be flank pain renl stone or UTI hematuria from UTI or stone or other Narrative Course CT done after urine has blood but no WBC and not a UTI --> CT shows bladder mass and pt reports knowledge of a mass but says it was 1 cm not 4cm, so seems to be increasing in size and she has no follow up for investigtion needs admit and consult with urology possible inpt retrograde cystoscopy. Diagnosis Primary Impression: Bladder mass Additional Impression: Abdominal pain Qualified Codes: R10.9 - Unspecified abdominal pain Admitting Information Admitting Physician Requests: Observation Gregorio Avelar MD May 13, 2018 03:36
--- NOTE | 2018-05-13 03:45 | HHI.HP ---
[facility] Service [facility] Primary Care Physician Finn Rodríguez MD Admission Diagnosis intractable pain abdo , bladder mass Diagnoses: (1) Intractable abdominal pain Diagnosis: Principal (2) Bladder mass Diagnosis: Principal (3) Tobacco abuse Diagnosis: Principal Travel History International Travel<30 Days: No Contact w/Intl Traveler <30 Da: No Traveled to Known Affected Are: No History of Present Illness This is a 38-year-old female with a PMH of DVT s/p IVC Filter and Tobacco Abuse who presented to the ER with complaints of left-sided flank pain in addition to hematuria. States symptoms started on Wednesday (2 days ago). Reports pain is constant, severe, 10/10, cramping, non-radiating, w/ associated nausea, no vomiting. Reports h/o hematuria several years ago, however states she was told this was related to "bladder infection". Denies fever, chills at this time. On arrival, BP 147/87, HR 78, O2 sat 99% on RA, Afebrile. CBC unremarkable. Chemistry essentially unremarkable. UA with occult blood. CT Abdomen/Pelvis small nonobstructing renal stones bilaterally, 4 cm urinary bladder mass. Review of Systems Except as stated in HPI: all other systems reviewed are Neg ROS: 14 point review of systems otherwise negative. Past Family Social History Past Medical History PMH: DVT s/p IVC Filter and Tobacco Abuse Past Surgical History PAST SURGICAL HISTORY: x4, Hysterectomy, IVC Filter Allergies: Coded Allergies: oxycodone (Unverified Allergy, Severe, Rash, 05/12/18) *MDRO Multi-Drug Resistant Organism (Verified Allergy, Unknown, 05/12/18) MRSA Family History PAST FAMILY HISTORY: Reviewed, positive for Hyperlipidemia. Social History PAST SOCIAL HISTORY: Negative for alcohol or drugs. Positive for tobacco per Physical Exam Vital Signs Vital Signs Date Time Temp Pulse Resp B/P (MAP) Pulse Ox O2 Delivery O2 Flow Rate FiO2 05/12/18 21:47 98.3 78 20 147/87 (107) 99 Physical Exam PE: GENERAL: Pleasant young black female in no acute distress. HEENT: PERRLA, EOMI. No scleral icterus or conjunctival pallor. No lid lag or facial droop. CARDIOVASCULAR: Regular rate and rhythm. No obvious murmurs to auscultation. No chest tenderness to palpation. RESPIRATORY: No obvious rhonchi or wheezing. Clear to auscultation. Breath sounds equal bilaterally. GASTROINTESTINAL: Abdomen soft, suprapubic tenderness to palpation, nondistended. BS normal. MUSCULOSKELETAL: Extremities without clubbing, cyanosis, or edema. No obvious deformities. NEUROLOGICAL: Awake, alert and oriented x4. No focal neurologic deficits. Moving both upper and lower extremities spontaneously. Laboratory Laboratory Tests Test 05/13/18 01:00 05/13/18 01:56 White Blood Count 10.7 Red Blood Count 4.15 Hemoglobin 12.9 Hematocrit 36.9 Mean Corpuscular Volume 88.9 Mean Corpuscular Hemoglobin 31.0 Mean Corpuscular Hemoglobin Concent 34.9 Red Cell Distribution Width 13.8 Platelet Count 223 Mean Platelet Volume 8.8 Neutrophils (%) (Auto) 58.0 Lymphocytes (%) (Auto) 32.7 Monocytes (%) (Auto) 5.7 Eosinophils (%) (Auto) 2.5 Basophils (%) (Auto) 1.1 Neutrophils # (Auto) 6.2 Lymphocytes # (Auto) 3.5 Monocytes # (Auto) 0.6 Eosinophils # (Auto) 0.3 Basophils # (Auto) 0.1 CBC Comment DIFF FINAL Differential Comment Blood Urea Nitrogen 17 Creatinine 0.61 Random Glucose 74 Total Protein 6.8 Albumin 3.6 Calcium Level 8.4 Alkaline Phosphatase 58 Aspartate Amino Transf (AST/SGOT) 22 Alanine Aminotransferase (ALT/SGPT) 14 Total Bilirubin 0.6 Sodium Level 141 Potassium Level 4.3 Chloride Level 111 Carbon Dioxide Level 22.3 Anion Gap 8 Estimat Glomerular Filtration Rate 133 Lipase 89 Urine Color YELLOW Urine Turbidity CLEAR Urine pH 5.0 Urine Specific [place] 1.026 Urine Protein NEG Urine Glucose (UA) NEG Urine Ketones NEG Urine Occult Blood SMALL Urine Nitrite NEG Urine Bilirubin NEG Urine Leukocyte Esterase NEG Urine RBC 2 Urine WBC LESS THAN 1 Urine Mucus FEW Microscopic Urinalysis Comment CULT NOT INDICATED Result Diagram: 05/13/18 0100 05/13/18 010 Caprini VTE Risk Assessment Caprini VTE Risk Assessment: No/Low Risk (score <= 1) Caprini Risk Assessment Model Point Value = 1 Point Value = 2 Point Value = 3 Point Value = 5 Age 41-60 Minor surgery BMI > 25 kg/m2 Swollen legs Varicose veins or History of unexplained or recurrent spontaneous Oral contraceptives or hormone replacement Sepsis (< 1 month) Serious lung disease, including pneumonia (< 1 month) Abnormal pulmonary function Acute myocardial infarction Congestive heart failure (< 1 month) History of inflammatory bowel disease Medical patient at bed rest Age 61-74 Arthroscopic surgery Major open surgery (> 45 min) Laparoscopic surgery (> 45 min) Malignancy Confined to bed (> 72 hours) Immobilizing plaster cast Central venous access Age >= 75 History of VTE Family history of VTE Factor V Leiden Prothrombin [id number] Lupus anticoagulant Anticardiolipin antibodies Elevated serum homocysteine Heparin-induced thrombocytopenia Other congenital or acquired thrombophilia Stroke (< 1 month) Elective arthroplasty Hip, pelvis, or leg fracture Acute spinal cord injury (< 1 month) Prophylaxis Regimen Total Risk Factor Score Risk Level Prophylaxis Regimen 0-1 Low Early ambulation 2 Moderate Order ONE of the following: *Sequential Compression Device (SCD) *Heparin 5000 units SQ BID 3-4 Higher Order ONE of the following medications: *Heparin 5000 units SQ TID *Enoxaparin/Lovenox 40 mg SQ daily (WT < 150 kg, CrCl > 30 mL/min) *Enoxaparin/Lovenox 30 mg SQ daily (WT < 150 kg, CrCl > 10-29 mL/min) *Enoxaparin/Lovenox 30 mg SQ BID (WT < 150 kg, CrCl > 30 mL/min) AND/OR *Sequential Compression Device (SCD) 5 or more Highest Order ONE of the following medications: *Heparin 5000 units SQ TID (Preferred with Epidurals) *Enoxaparin/Lovenox 40 mg SQ daily (WT < 150 kg, CrCl > 30 mL/min) *Enoxaparin/Lovenox 30 mg SQ daily (WT < 150 kg, CrCl > 10-29 mL/min) *Enoxaparin/Lovenox 30 mg SQ BID (WT < 150 kg, CrCl > 30 mL/min) AND *Sequential Compression Device (SCD) Assessment and Plan Problem List: (1) Intractable abdominal pain ICD Code: R10.9 - Unspecified abdominal pain (2) Bladder mass ICD Code: N32.89 - Other specified disorders of bladder Status: Acute (3) Tobacco abuse ICD Code: Z72.0 - Tobacco use Assessment and Plan A/P: 1. Intractable Abd Pain: acute onset of abdominal pain x2 days w/ associated nausea, s/p Pepcid, GI Cocktail and Morphine in ER w/ minimal improvement. Continue w/ analgesics/antiemetics as needed. 2. Bladder Mass: CT Abd/Pelvis w/ 4cm bladder mass, +hematuria, will Consult Urology for further evaluation/intervention. IVF for hydration, repeat labs in am. 3. Tobacco Abuse: Pt counselled. NicoDerm prn if needed 4. DVT Prophylaxis: H/o DVT s/p IVC Filter. 5. Social work for d/c planning as needed. 6. Case discussed w/ ER physician at length, labs/records/imaging reviewed by me. Yaz Bullock MD May 13, 2018 03:45
[2018-05-13 03:59] VITALS: BP 132/85; PULSE 76; RESP 18; TEMP 98.3; O2SAT 98
[2018-05-13] MEDS: MORPHINE SULFATE 4 MG/ML INJ IV PRN ×3 (04:54→13:18)
[2018-05-13 08:33] VITALS: BP 130/60; PULSE 70; RESP 18; TEMP 97.9; O2SAT 70
[2018-05-13] MEDS ORDERED: SODIUM CHLORIDE 0.9% FLUSH 10 ML FLUSH IV FLUSH SCH (09:00)
[2018-05-13] MEDS ORDERED: DOCUSATE SODIUM 50 MG/SENNA 8.6 MG TAB PO SCH (09:00)
--- NOTE | 2018-05-13 09:55 | HHI.PR ---
Subjective Remarks Follow-up for bladder mass, hematuria. Patient reports continued constant 8/10 sharp lower abdominal pain, worse at the left lower quadrant. She denies any dysuria, however reports pressure pains upon urination. She states her hematuria has improved. Denies any fevers or chills. Denies any nausea/ vomiting or diarrhea. She states she has been diagnosed with endometriosis, had hysterectomy and left oophorectomy in the past. She states she constantly deals with lower abdominal pain due to the endometriosis however this is a little bit worse than usual. Objective Vitals Vital Signs Date Time Temp Pulse Resp B/P (MAP) Pulse Ox O2 Delivery O2 Flow Rate FiO2 05/13/18 08:33 97.9 70 18 130/60 (83) 70 05/13/18 06:08 18 05/13/18 03:59 98.3 76 18 132/85 (101) 98 05/12/18 21:47 98.3 78 20 147/87 (107) 99 I/O 05/12/18 05/12/18 05/12/18 05/13/18 05/13/18 05/13/18 07:00 15:00 23:00 07:00 15:00 23:00 Intake Total 250 ml Balance 250 ml Intake Oral 250 ml Result Diagram: 05/13/18 0100 05/13/18 0100 Imaging Last Impressions Abdomen/Pelvis CT 05/13/18 0000 Signed Impressions: CONCLUSION: 1. Small nonobstructing renal stone seen bilaterally. 2. 4 cm urinary bladder mass. 3. Suspected postoperative change in the subcutaneous fat at the lower anterio r abdominal wall in the pelvis. Objective Remarks GENERAL: Well-nourished, well-developed pleasant AA female patient in [facility]. SKIN: Warm and dry. No rash. HEENT: Normocephalic. Atraumatic. Pupils equal and round. Mucous membranes pink and moist. CARDIOVASCULAR: Regular rate and rhythm. No murmur appreciated. RESPIRATORY: No accessory muscle use. Clear to auscultation. Breath sounds equal bilaterally. GASTROINTESTINAL: Abdomen soft, nondistended, diffuse lower abdominal tenderness to palpation. Normoactive bowel sounds x4. MUSCULOSKELETAL: No obvious deformities. Extremities without clubbing, cyanosis , or edema. NEUROLOGICAL: Awake and alert. No obvious cranial nerve deficits. Motor grossly within normal limits. Moving all extremities spontaneously. Normal speech. PSYCHIATRIC: Appropriate mood and affect; insight and judgment normal. Medications and IVs Current Medications Medications (Trade) Dose Ordered Sig/Halie Route Start Time Stop Time Status Last Admin Sodium Chloride 1,000 ml @ 100 mls/hr Q10H IV 05/13/18 03:04 05/13/18 07:58 (NS Flush) 2 ml UNSCH PRN IV FLUSH 05/13/18 03:15 (NS Flush) 2 ml BID IV FLUSH 05/13/18 09:00 (Reglan Inj) 5 mg Q6H PRN IV PUSH 05/13/18 03:15 (Tylenol) 650 mg Q6H PRN PO 05/13/18 03:15 (Morphine Inj) 2 mg Q3H PRN IV 05/13/18 03:30 05/13/18 08:05 (Shanna-Colace) 1 tab BID PO 05/13/18 09:00 (Milk Of Magnesia Liq) 30 ml Q12H PRN PO 05/13/18 03:15 (Senokot) 17.2 mg Q12H PRN PO 05/13/18 03:15 (Dulcolax Supp) 10 mg DAILY PRN RECTAL 05/13/18 03:15 (Lactulose Liq) 30 ml DAILY PRN PO 05/13/18 03:15 A/P Problem List: (1) Intractable abdominal pain ICD Code: R10.9 - Unspecified abdominal pain (2) Bladder mass ICD Code: N32.89 - Other specified disorders of bladder Status: Acute (3) Tobacco abuse ICD Code: Z72.0 - Tobacco use Assessment and Plan 38-year-old female with a PMH of endometriosis, DVT s/p IVC Filter not on anticoagulation, and Tobacco Abuse who presented to the ER with complaints of left-sided flank pain in addition to hematuria. Intractable Abd Pain: acute onset of abdominal pain x2 days w/ associated nausea, s/p Pepcid, GI Cocktail and Morphine in ER w/ minimal improvement. Possibly secondary to bladder mass vs endometriosis. -CT abd reviewed, shows small nonobstructing bilateral renal stones, 4cm bladder mass, suspected postoperative change in subcutaneous fat at lower anterior abdominal wall in the pelvis -Lipase and LFTs wnl -Continue supportive care with IVF hydration, antiemetics and analgesics prn -Diet as tolerated Bladder Mass with Hematuria: CT Abd/Pelvis w/ 4cm bladder mass as above, + hematuria. -UA negative for infection -Consult Urology for further evaluation/intervention. -Continue IVF for hydration -CBC stable with Hgb 12.9 Tobacco Abuse: Pt counselled. NicoDerm prn if needed DVT Prophylaxis: H/o DVT s/p IVC Filter. Discharge Planning Discharge pending urology evaluation and recommendations. 1450hrs: Patient seen by urology - no acute intervention indicated, cleared for discharge home, recommended outpatient follow up for cystoscopic evaluation of bladder mass, patient advised to contact Dr. Connors's office on Wednesday to arrange this. Mandatory outpatient referral ordered. Symptoms improved at discharge. Patient being discharged home. Discharge patient to home Condition on discharge: Stable Regular Diet as tolerated [place] activity Rx written: no new meds, continue naproxen prn Follow-up with primary care physician Dr. Rodríguez, and Urology Cara Salcido PA-C May 13, 2018 09:55
[2018-05-13 12:09] VITALS: BP 128/60; PULSE 60; RESP 20; TEMP 98.2; O2SAT 96
--- NOTE | 2018-05-13 14:01 | PD.CONS ---
HPI Service Urology Consult Requested By Dr. Bullock Reason for Consult Bladder mass on CT scan Primary Care Physician Finn Rodríguez MD Diagnosis: (1) Intractable abdominal pain ICD Code: R10.9 - Unspecified abdominal pain (2) Bladder mass ICD Code: N32.89 - Other specified disorders of bladder (3) Tobacco abuse ICD Code: Z72.0 - Tobacco use History of Present Illness 38-year-old female with history endometriosis with involvement of the urinary bladder who has been experiencing problems with chronic pelvic pain for the past couple of years. Patient was recently admitted for flareup of her pelvic pain and new onset hematuria. Workup included a CT scan that once again demonstrated a mass lesion involving the superior aspect of the bladder now measuring approximately 4 cm in size. Patient has had a urologic workup in the past with Dr. Marc Zavaleta and was recommended to be managed conservatively. At the time of consultation the patient reported improvement in her overall symptoms. I discussed the need for follow-up evaluation with cystoscopic evaluation and that this could be performed as an outpatient. Patient reports that she is no longer able to see Dr. Zavaleta due to a change in her insurance. Review of Systems Constitutional: DENIES: Fever, Chills Cardiovascular: DENIES: Chest pain Gastrointestinal: COMPLAINS OF: Abdominal pain Genitourinary: COMPLAINS OF: Hematuria Except as stated in HPI: all other systems reviewed are Neg Past Family Social History Past Medical History Endometriosis with chronic pelvic pain History DVT Past Surgical History Status post placement of IVC filter Status post section 4 Status post hysterectomy Reported Medications Refer to EMR Allergies: Coded Allergies: oxycodone (Unverified Allergy, Severe, Rash, 05/12/18) *MDRO Multi-Drug Resistant Organism (Verified Allergy, Unknown, 05/12/18) MRSA Active Ordered Medications Refer to EMR Family History Reviewed and noncontributory Social History Current smoker Denies history alcohol or intravenous drug abuse Physical Exam Vital Signs Date Time Temp Pulse Resp B/P (MAP) Pulse Ox O2 Delivery O2 Flow Rate FiO2 05/13/18 12:09 98.2 60 20 128/60 (82) 96 05/13/18 08:33 97.9 70 18 130/60 (83) 70 05/13/18 06:08 18 05/13/18 03:59 98.3 76 18 132/85 (101) 98 05/12/18 21:47 98.3 78 20 147/87 (219) 00 Physical Exam GENERAL: This is a well-nourished, well-developed patient, in no apparent distress. SKIN: No rashes, ecchymoses or lesions. Cool and dry. HEAD: Atraumatic. Normocephalic. No temporal or scalp tenderness. EYES: Pupils equal round and reactive. Extraocular motions intact. No scleral icterus. No injection or drainage. ENT: Nose without bleeding, purulent drainage or septal hematoma. Throat without erythema, tonsillar hypertrophy or exudate. Uvula midline. Airway patent. NECK: Trachea midline. No JVD or lymphadenopathy. Supple, nontender, no meningeal signs. CARDIOVASCULAR: Regular rate and rhythm without murmurs, gallops, or rubs. RESPIRATORY: Clear to auscultation. Breath sounds equal bilaterally. No wheezes , rales, or rhonchi. GASTROINTESTINAL: Abdomen soft, non-tender, nondistended. No hepato-splenomegaly , or palpable masses. No guarding. GENITOURINARY: No CVA tenderness MUSCULOSKELETAL: Extremities without clubbing, cyanosis, or edema. No joint tenderness, effusion, or edema noted. No calf tenderness. Negative Homans sign bilaterally. NEUROLOGICAL: Awake and alert. Cranial nerves II through XII intact. Motor and sensory grossly within normal limits. Five out of 5 muscle strength in all muscle groups. Normal speech. Lab results reviewed: Yes Laboratory Tests Test 05/13/18 01:00 05/13/18 01:56 White Blood Count 10.7 Red Blood Count 4.15 Hemoglobin 12.9 Hematocrit 36.9 Mean Corpuscular Volume 88.9 Mean Corpuscular Hemoglobin 31.0 Mean Corpuscular Hemoglobin Concent 34.9 Red Cell Distribution Width 13.8 Platelet Count 223 Mean Platelet Volume 8.8 Neutrophils (%) (Auto) 58.0 Lymphocytes (%) (Auto) 32.7 Monocytes (%) (Auto) 5.7 Eosinophils (%) (Auto) 2.5 Basophils (%) (Auto) 1.1 Neutrophils # (Auto) 6.2 Lymphocytes # (Auto) 3.5 Monocytes # (Auto) 0.6 Eosinophils # (Auto) 0.3 Basophils # (Auto) 0.1 CBC Comment DIFF FINAL Differential Comment Blood Urea Nitrogen 17 Creatinine 0.61 Random Glucose 74 Total Protein 6.8 Albumin 3.6 Calcium Level 8.4 Alkaline Phosphatase 58 Aspartate Amino Transf (AST/SGOT) 22 Alanine Aminotransferase (ALT/SGPT) 14 Total Bilirubin 0.6 Sodium Level 141 Potassium Level 4.3 Chloride Level 111 Carbon Dioxide Level 22.3 Anion Gap 8 Estimat Glomerular Filtration Rate 133 Lipase 89 Urine Color YELLOW Urine Turbidity CLEAR Urine pH 5.0 Urine Specific [place] 1.026 Urine Protein NEG Urine Glucose (UA) NEG Urine Ketones NEG Urine Occult Blood SMALL Urine Nitrite NEG Urine Bilirubin NEG Urine Leukocyte Esterase NEG Urine RBC 2 Urine WBC LESS THAN 1 Urine Mucus FEW Microscopic Urinalysis Comment CULT NOT INDICATED Result Diagram: 05/13/18 0100 05/13/18 0100 Personally reviewed images: Yes Imaging Last Impressions Abdomen/Pelvis CT 05/13/18 0000 Signed Impressions: CONCLUSION: 1. Small nonobstructing renal stone seen bilaterally. 2. 4 cm urinary bladder mass. 3. Suspected postoperative change in the subcutaneous fat at the lower anterio r abdominal wall in the pelvis. Assessment and Plan Assessment and Plan Urologic impression: Long-standing history bladder wall mass related to endometriosis which has been increasing in size. Plan: 1. No acute urologic intervention indicated 2. Urologically cleared for discharge home when pain managed with oral meds 3. Patient to follow-up at my office for follow-up cystoscopic re-evaluation of the bladder mass (patient advised to contact my office on Wednesday to arrange this). Clint Connors MD May 13, 2018 14:01
--- NOTE | 2018-05-13 14:53 | HHI.DCPOC ---
Discharge Care Plan Diagnosis: (1) Bladder mass (2) Abdominal pain (3) Endometriosis Goals to Promote Your Health * To prevent worsening of your condition and complications * To maintain your health at the optimal level Directions to Meet Your Goals Take your medications as prescribed Follow your dietary instruction Follow activity as directed Keep your appointments as scheduled Take your immunizations and boosters as scheduled If your symptoms worsen call your PCP, if no PCP go to Urgent Care Center or Emergency Room Smoking is Dangerous to Your Health. Avoid second hand smoke Call the 24-hour hour crisis hotline for domestic abuse at Cara Sr PA-C May 13, 2018 14:53
== END 2018-05-13 16:25 | disposition home or self-care (01) ==
LOC: NEPE 20:18 → NEDA 05-13 03:06 → NEPHCDU 05-13 03:39
PROVIDERS: ADMIT Hospitalist; ATTEND Hospitalist
DX: N32.89 Other specified disorders of bladder (principal); N20.0 Calculus of kidney; N80.9 Endometriosis, unspecified; Z79.01 Long term (current) use of anticoagulants; Z86.718 Personal history of other venous thrombosis and embolism; N83.9 Noninflammatory disorder of ovary, fallopian tube and broad ligament, unspecified; Z90.710 Acquired absence of both cervix and uterus; F17.200 Nicotine dependence, unspecified, uncomplicated; R11.0 Nausea; G89.29 Other chronic pain; R10.2 Pelvic and perineal pain
CPT/HCPCS: 74176; 80053; 81001; 83690; 85025; 96374; 96375; 96376; 99285; G0378; J2270; J7030